=== PATIENT | female | born 1940 | race Caucasian/White ===

== ENCOUNTER → 2017-01-08 | Outpatient (CLI) | payer MEDICARE, OTHER ==
[~2017-01-08] MED LIST: CHOL20007; FOLI1TAB6 PO; FURO40TA4 PO; LOSA100T21 PO; MULTTAB PO; PROP60CA8 PO; SIMV-13 PO
[2017-01-08 09:59] LABS: Basophils # (auto) 0.1 uL; Basophils % (auto) 0.7 % (0.0-2.0); Eosinophils # (auto) 0.2 uL; Eosinophils % (auto) 3.3 % (0.0-7.0); Hematocrit 38.8 % (36.0-46.0); Hemoglobin 13.1 g/dL (12.2-16.2); Lymphocytes # (auto) 2.3 uL; Lymphocytes % (auto) 31.7 % (10.0-50.0); Mean Corpuscular Hemoglobin 31.5 pg (28.0-32.0); Mean Corpuscular Hgb Conc. 33.9 g/dL (32.0-36.0); Mean Corpuscular Volume 92.8 fL (80.0-100.0); Mean Platelet Volume 8.4 fL (7.4-10.4); Monocytes # (auto) 0.6 uL; Monocytes % (auto) 8.2 % (0.0-12.0); Neutrophils % (auto) 56.1 % (37.0-80.0); Platelet Count (auto) 271 10^3/uL (140-450); Red Cell Distribution Width 14.1 % (11.6-16.0); White Blood Cell 7.2 10^3/uL (4.4-10.8)
[2017-01-08 10:28] LABS: Albumin 3.6 g/dL (3.4-5.0); BUN/Creatinine Ratio 19.5; Calcium 9.2 mg/dL (8.5-10.1); Phosphorus 3.4 mg/dL (2.5-4.90); Potassium 4.7 mmol/L (3.5-5.1)
[2017-01-08 11:08] LABS: Urine Bilirubin Negative (Negative); Urine Blood Negative /uL (Negative); Urine Color Yellow (Yellow); Urine Glucose Normal (Normal); Urine Ketone Negative (Negative); Urine Nitrite Negative (Negative); Urine RBC <1 /hpf (0 - 4); Urine Squamous Epithelial Cell MOD /hpf (<5); Urine Urobilinogen Normal (Negative); Urine pH 5.5 (5.0-8.0)
== END | disposition home or self-care (01) ==
LOC: LAB 09:27
PROVIDERS: ATTEND Internal Medicine
DX: Z00.00 Encounter for general adult medical examination without abnormal findings (principal)
CPT/HCPCS: 36415; 80061; 80069; 81001; 82043; 83036; 85025

== ENCOUNTER → 2019-05-15 | Outpatient (CLI) | payer MEDICARE, OTHER ==
[~2019-05-15] MED LIST changes: +PROP60CA34 PO; -PROP60CA8 PO
[2019-05-15 12:27] LABS: Basophils # (auto) 0.1 uL; Basophils % (auto) 1.1 % (0.0-2.0); Eosinophils # (auto) 0.2 uL; Eosinophils % (auto) 2.9 % (0.0-7.0); Hematocrit 39.2 % (36.0-46.0); Hemoglobin 13.2 g/dL (12.2-16.2); Lymphocytes # (auto) 2.5 uL; Mean Corpuscular Hemoglobin 31.8 pg (28.0-32.0); Mean Corpuscular Hgb Conc. 33.7 g/dL (32.0-36.0); Mean Corpuscular Volume 94.4 fL (80.0-100.0); Monocytes # (auto) 0.5 uL; Monocytes % (auto) 7.1 % (0.0-12.0); Neutrophils # (auto) 3.8 uL; Neutrophils % (auto) 53.9 % (37.0-80.0); Platelet Count (auto) 258 10^3/uL (140-450); Red Blood Cells 4.16 10^6/uL (4.0-5.20); Red Cell Distribution Width 13.5 % (11.8-14.3)
[2019-05-15 13:01] LABS: Potassium 4.4 mmol/L (3.5-5.1)
[2019-05-15 13:10] LABS: Albumin 3.7 g/dL (3.4-5.0); BUN/Creatinine Ratio 18.2; Bilirubin, Total 0.4 mg/dL (0.2-1.0); Calcium 9.4 mg/dL (8.5-10.1); Total Protein 8.3 g/dL (6.4-8.2)
[2019-05-15 15:50] LABS: Urine Bacteria MANY /hpf (None Seen); Urine Blood Negative /uL (Negative); Urine Hyaline Cast MOD /lpf (0 - 2); Urine Mucus FEW (None Seen); Urine Specific Gravity 1.018 (1.001-1.035); Urine WBC 350 /hpf (0 - 5); Urine WBC Clumps PRESENT /hpf (None Seen)
== END | disposition home or self-care (01) ==
LOC: LAB 11:15
PROVIDERS: ATTEND Physician Assistant
DX: E11.22 Type 2 diabetes mellitus with diabetic chronic kidney disease (principal); I12.9 Hypertensive chronic kidney disease with stage 1 through stage 4 chronic kidney disease, or unspecified chronic kidney disease; N18.3 Chronic kidney disease, stage 3 (moderate); E78.1 Pure hyperglyceridemia; E87.6 Hypokalemia
CPT/HCPCS: 36415; 80053; 80061; 81001; 83036; 85025

== ENCOUNTER → 2021-03-30 | Outpatient (CLI) | payer MEDICARE, OTHER ==
[~2021-03-30] MED LIST changes: +MULT-733 PO; -MULTTAB PO
[2021-03-30 08:37] LABS: Basophils # (auto) 0.1 10 ^3/uL (0-0.2); Basophils % (auto) 1.1 % (0.0-2.0); Eosinophils # (auto) 0.2 10 ^3/uL (0-0.8); Eosinophils % (auto) 3.3 % (0.0-7.0); Hematocrit 31.8 % (36.0-46.0); Lymphocytes # (auto) 2.3 10 ^3/uL (0.4-5.4); Lymphocytes % (auto) 35.3 % (10.0-50.0); Mean Corpuscular Hgb Conc. 34.6 g/dL (32.0-36.0); Mean Corpuscular Volume 95.3 fL (80.0-100.0); Monocytes # (auto) 0.4 10 ^3/uL (0-1.3); Monocytes % (auto) 6.7 % (0.0-12.0); Neutrophils # (auto) 3.5 10 ^3/uL (1.6-8.6); Neutrophils % (auto) 53.6 % (37.0-80.0); Platelet Count (auto) 216 10^3/uL (140-450); Red Blood Cells 3.33 10^6/uL (4.0-5.20); Red Cell Distribution Width 14.3 % (11.8-14.3); White Blood Cell 6.5 10^3/uL (4.4-10.8)
[2021-03-30 09:12] LABS: Potassium 5.5 mmol/L (3.5-5.1)
[2021-03-30 09:29] LABS: Albumin 3.4 g/dL (3.4-5.0); Bilirubin, Total 0.4 mg/dL (0.2-1.0); Calcium 9.3 mg/dL (8.5-10.1); Total Protein 7.4 g/dL (6.4-8.2)
== END | disposition home or self-care (01) ==
LOC: LAB 07:40
PROVIDERS: ATTEND Physician Assistant
DX: I12.9 Hypertensive chronic kidney disease with stage 1 through stage 4 chronic kidney disease, or unspecified chronic kidney disease (principal); E11.22 Type 2 diabetes mellitus with diabetic chronic kidney disease; N18.30 Chronic kidney disease, stage 3 unspecified; E11.29 Type 2 diabetes mellitus with other diabetic kidney complication; Z00.00 Encounter for general adult medical examination without abnormal findings; E78.1 Pure hyperglyceridemia; E87.6 Hypokalemia
CPT/HCPCS: 36415; 80053; 80061; 82043; 82274; 83036; 85025; 85049

== ENCOUNTER → 2022-07-31 | Outpatient (CLI) | payer MEDICARE, OTHER ==
[2022-07-31 09:30] LABS: Albumin 3.3 g/dL (3.4-5.0); Calcium 8.8 mg/dL (8.5-10.1); Potassium 4.9 mmol/L (3.5-5.1)
[2022-07-31 09:32] LABS: Basophils # (auto) 0.1 10 ^3/uL (0-0.2); Basophils % (auto) 0.8 % (0.0-2.0); Eosinophils # (auto) 0.2 10 ^3/uL (0-0.8); Eosinophils % (auto) 3.2 % (0.0-7.0); Hematocrit 35.1 % (36.0-46.0); Hemoglobin 11.9 g/dL (12.2-16.2); Lymphocytes # (auto) 1.9 10 ^3/uL (0.4-5.4); Mean Corpuscular Hemoglobin 32.2 pg (28.0-32.0); Mean Corpuscular Hgb Conc. 33.8 g/dL (32.0-36.0); Mean Corpuscular Volume 95.2 fL (80.0-100.0); Monocytes # (auto) 0.5 10 ^3/uL (0-1.3); Monocytes % (auto) 6.9 % (0.0-12.0); Neutrophils # (auto) 4.3 10 ^3/uL (1.6-8.6); Neutrophils % (auto) 62.1 % (37.0-80.0); Red Blood Cells 3.68 10^6/uL (4.0-5.20); Red Cell Distribution Width 13.3 % (11.8-14.3)
[2022-07-31 09:34] LABS: BUN/Creatinine Ratio 11.3; Bilirubin, Total 0.4 mg/dL (0.2-1.0); Total Protein 7.2 g/dL (6.4-8.2)
== END | disposition home or self-care (01) ==
LOC: LAB 08:33
PROVIDERS: ATTEND Nurse Practitioner Family
DX: I12.9 Hypertensive chronic kidney disease with stage 1 through stage 4 chronic kidney disease, or unspecified chronic kidney disease (principal); N18.30 Chronic kidney disease, stage 3 unspecified; E78.1 Pure hyperglyceridemia; E11.65 Type 2 diabetes mellitus with hyperglycemia; Z00.00 Encounter for general adult medical examination without abnormal findings
CPT/HCPCS: 36415; 80053; 80061; 83036; 84439; 84443; 85025

== ENCOUNTER → 2023-12-10 | Outpatient (CLI) | payer MEDICARE, OTHER ==
[~2023-12-10] MED LIST changes: +FOLI-119 PO; -FOLI1TAB6 PO; -SIMV-13 PO; +SIMV40TA18 PO
[2023-12-10 15:34] LABS: Alanine Aminotransferase 14 U/L (7-40); Albumin 4.5 g/dL (3.2-4.8); Alkaline Phosphatase 77 U/L (46-116); Anion Gap 8 (5-15); Aspartate Aminotransferase 13 U/L (13-40); BUN/Creatinine Ratio 14.2 (10.0-20.0); Bilirubin, Total 0.4 mg/dL (0.2-1.0); Blood Urea Nitrogen 22 mg/dL (9-23); Calcium 9.5 mg/dL (8.5-10.1); Carbon Dioxide 26 mmol/L (20-30); Chloride 104 mmol/L (98-107); Glucose 104 mg/dL (74-106); Potassium 4.6 mmol/L (3.5-5.1); Sodium 138 mmol/L (136-145); Total Protein 7.6 g/dL (5.7-8.2)
== END | disposition home or self-care (01) ==
LOC: LAB 15:02
PROVIDERS: ATTEND Nurse Practitioner Family
DX: E11.22 Type 2 diabetes mellitus with diabetic chronic kidney disease (principal); N18.9 Chronic kidney disease, unspecified
CPT/HCPCS: 36415; 80053; 82043

== ENCOUNTER → 2024-07-24 | Outpatient (CLI) | payer MEDICARE, OTHER ==
[2024-07-24 09:20] LABS: Basophils # (auto) 0.1 10 ^3/uL (0-0.2); Eosinophils # (auto) 0.2 10 ^3/uL (0-0.8); Hematocrit 37.5 % (36.0-46.0); Hemoglobin 12.7 g/dL (12.2-16.2); Lymphocytes # (auto) 2.4 10 ^3/uL (0.4-5.4); Lymphocytes % (auto) 28.9 % (10.0-50.0); Mean Corpuscular Hemoglobin 32.7 pg (28.0-32.0); Mean Corpuscular Hgb Conc. 33.8 g/dL (32.0-36.0); Mean Corpuscular Volume 96.5 fL (80.0-100.0); Monocytes # (auto) 0.5 10 ^3/uL (0-1.3); Monocytes % (auto) 6.1 % (0.0-12.0); Neutrophils # (auto) 5.2 10 ^3/uL (1.6-8.6); Platelet Count (auto) 294 10^3/uL (140-450); Red Blood Cells 3.89 10^6/uL (4.0-5.20); Red Cell Distribution Width 14.1 % (11.8-14.3); White Blood Cell 8.4 10^3/uL (4.4-10.8)
[2024-07-24 09:51] LABS: Creatinine, Urine 104.53 mg/dL (30.0-125.0)
[2024-07-24 09:54] LABS: Alanine Aminotransferase 10 U/L (7-40); Albumin 4.5 g/dL (3.2-4.8); Alkaline Phosphatase 72 U/L (46-116); Anion Gap 8 (5-15); Aspartate Aminotransferase < 8 U/L (13-40); BUN/Creatinine Ratio 18.3 (10.0-20.0); Bilirubin, Total 0.3 mg/dL (0.2-1.0); Blood Urea Nitrogen 35 mg/dL (9-23); Calcium 10.2 mg/dL (8.7-10.4); Carbon Dioxide 21 mmol/L (20-31); Chloride 110 mmol/L (98-107); Cholesterol 130 mg/dL (< 200); Glucose 136 mg/dL (74-106); HDL Cholesterol 43 mg/dL (40-59); LDL Cholesterol 59 mg/dL (< 100); Potassium 5.2 mmol/L (3.5-5.1); Sodium 139 mmol/L (136-145); Triglycerides 237 mg/dL (< 150)
== END | disposition home or self-care (01) ==
LOC: LAB 08:48
PROVIDERS: ATTEND Nurse Practitioner Family
DX: E11.22 Type 2 diabetes mellitus with diabetic chronic kidney disease (principal); I70.0 Atherosclerosis of aorta; E03.9 Hypothyroidism, unspecified; I10 Essential (primary) hypertension
CPT/HCPCS: 36415; 80053; 80061; 82043; 82274; 82570; 83036; 84443; 85025

== ENCOUNTER → 2024-11-11 | Outpatient (CLI) | payer MEDICARE, OTHER ==
[2024-11-11 15:46] LABS: Chloride 104 mmol/L (98-107); Potassium 4.8 mmol/L (3.5-5.1); Sodium 138 mmol/L (136-145)
[2024-11-11 15:47] LABS: Anion Gap 8 (5-15); Carbon Dioxide 26 mmol/L (20-31)
[2024-11-11 15:48] LABS: Calcium 10.4 mg/dL (8.7-10.4)
[2024-11-11 15:52] LABS: Glucose 104 mg/dL (74-106)
[2024-11-11 15:53] LABS: BUN/Creatinine Ratio 17.4 (10.0-20.0); Blood Urea Nitrogen 29 mg/dL (9-23)
== END | disposition home or self-care (01) ==
LOC: LAB 14:33
PROVIDERS: ATTEND Nurse Practitioner Family
DX: E11.22 Type 2 diabetes mellitus with diabetic chronic kidney disease (principal); N18.30 Chronic kidney disease, stage 3 unspecified; D63.1 Anemia in chronic kidney disease; E11.21 Type 2 diabetes mellitus with diabetic nephropathy; N39.0 Urinary tract infection, site not specified; E87.5 Hyperkalemia; E21.3 Hyperparathyroidism, unspecified; E55.9 Vitamin D deficiency, unspecified; M10.9 Gout, unspecified; R80.9 Proteinuria, unspecified
CPT/HCPCS: 36415; 80048

== ENCOUNTER 2025-03-16 11:52 | Outpatient (CLI) | payer MEDICARE ==
[2025-03-16 12:11] LABS: Basophils # (auto) 0 10 ^3/uL (0-0.2); Basophils % (auto) 0.5 % (0.0-2.0); Eosinophils # (auto) 0.1 10 ^3/uL (0-0.8); Eosinophils % (auto) 2.1 % (0.0-7.0); Hematocrit 36.5 % (36.0-46.0); Hemoglobin 12.4 g/dL (12.2-16.2); Lymphocytes # (auto) 1.8 10 ^3/uL (0.4-5.4); Lymphocytes % (auto) 27.5 % (10.0-50.0); Mean Corpuscular Hemoglobin 31.9 pg (28.0-32.0); Monocytes # (auto) 0.5 10 ^3/uL (0-1.3); Monocytes % (auto) 7.8 % (0.0-12.0); Neutrophils # (auto) 4.2 10 ^3/uL (1.6-8.6); Neutrophils % (auto) 62.1 % (37.0-80.0); Platelet Count (auto) 275 10^3/uL (140-450); Red Blood Cells 3.89 10^6/uL (4.0-5.20); White Blood Cell 6.7 10^3/uL (4.4-10.8)
[2025-03-16 13:05] LABS: Urine Bacteria MANY /hpf (None Seen); Urine Blood Negative /uL (Negative); Urine Budding Yeast OCCASIONAL /hpf (None Seen); Urine Clarity Turbid (Clear); Urine Color Light-Yellow (Yellow); Urine Mucus FEW (None Seen); Urine Protein, UAD Negative (Negative); Urine Specific Gravity 1.013 (1.001-1.035); Urine Squamous Epithelial Cell MOD /hpf (<5); Urine Urobilinogen Normal (Negative); Urine WBC 166 /HPF (0-5); Urine WBC Clumps PRESENT /hpf (None Seen); Urine pH 5.5 (5.0-9.0)
[2025-03-16 13:11] LABS: Alanine Aminotransferase 10 U/L (7-40); Albumin 4.5 g/dL (3.2-4.8); Alkaline Phosphatase 69 U/L (46-116); Anion Gap 12 (5-15); Aspartate Aminotransferase 11 U/L (<34); BUN/Creatinine Ratio 15.6 (10.0-20.0); Calcium 10.3 mg/dL (8.7-10.4); Carbon Dioxide 22 mmol/L (20-31); Chloride 106 mmol/L (98-107); Potassium 4.7 mmol/L (3.5-5.1); Sodium 140 mmol/L (136-145); Total Protein 7.8 g/dL (5.7-8.2)
[2025-03-16 13:14] LABS: Bilirubin, Total 0.3 mg/dL (0.2-1.0); Blood Urea Nitrogen 29 mg/dL (9-23); Glucose 188 mg/dL (74-106)
[2025-03-16 13:26] LABS: Creatinine, Urine 56.14 mg/dL (30.0-125.0)
[2025-03-16 17:22] LABS: Protein, Urine 28.1 mg/dL (1-14)
[2025-03-16 17:24] LABS: Creatinine, Urine 55.66 mg/dL (30.0-125.0); Urine Protein/Creatinine Ratio 0.5
== END 2025-03-16 17:00 | disposition home or self-care (01) ==
LOC: LAB 11:52
PROVIDERS: ATTEND Internal Medicine
DX: E11.22 Type 2 diabetes mellitus with diabetic chronic kidney disease (principal); N18.30 Chronic kidney disease, stage 3 unspecified; N39.0 Urinary tract infection, site not specified; R80.9 Proteinuria, unspecified; E21.3 Hyperparathyroidism, unspecified; E55.9 Vitamin D deficiency, unspecified; D63.1 Anemia in chronic kidney disease; M10.9 Gout, unspecified
CPT/HCPCS: 36415; 80053; 81001; 82043; 82306; 82570; 83036; 83970; 84156; 85025

== ENCOUNTER 2025-03-24 12:33 | Outpatient (CLI) | payer MEDICARE | END 2025-03-24 17:00 | disposition home or self-care (01) | LOC: LAB 12:33 | PROVIDERS: ATTEND Internal Medicine | DX: N39.0 Urinary tract infection, site not specified (principal) | CPT/HCPCS: 87086 ==

== ENCOUNTER 2025-04-06 15:18 | Outpatient (CLI) | payer MEDICARE ==
[2025-04-06 15:30] LABS: Hematocrit 38.7 % (36.0-46.0); Hemoglobin 13.0 g/dL (12.2-16.2); Mean Corpuscular Hemoglobin 31.9 pg (28.0-32.0); Mean Corpuscular Volume 95.3 fL (80.0-100.0); Nucleated Red Blood Cells % 0.1 %
[2025-04-06 15:50] LABS: INR 0.98 (0.9-1.15); Partial Thromboplastin Time 25.4 SEC (24.5-34.5); Prothrombin Time 10.4 sec (9.3-11.8)
[2025-04-06 16:10] LABS: Albumin 4.6 g/dL (3.2-4.8); Alkaline Phosphatase 68 U/L (46-116); Anion Gap 12 (5-15); BUN/Creatinine Ratio 16.5 (10.0-20.0); Bilirubin, Total 0.3 mg/dL (0.2-1.0); Calcium 9.3 mg/dL (8.7-10.4); Carbon Dioxide 21 mmol/L (20-31); Chloride 105 mmol/L (98-107); Sodium 138 mmol/L (136-145); Total Protein 7.8 g/dL (5.7-8.2)
[2025-04-06 16:20] LABS: Alanine Aminotransferase < 9 U/L (7-40); Blood Urea Nitrogen 34 mg/dL (9-23); Glucose 110 mg/dL (74-106)
[2025-04-06 16:28] LABS: Potassium 5.6 mmol/L (3.5-5.1)
== END 2025-04-06 17:00 | disposition home or self-care (01) ==
LOC: LAB 15:18
PROVIDERS: ATTEND Registered Nurse
DX: C18.2 Malignant neoplasm of ascending colon (principal); E11.21 Type 2 diabetes mellitus with diabetic nephropathy; Z79.899 Other long term (current) drug therapy
CPT/HCPCS: 36415; 80053; 82378; 85025; 85610; 85730

== ENCOUNTER 2025-04-14 13:46 | Outpatient (CLI) | payer MEDICARE | END 2025-04-14 17:00 | disposition home or self-care (01) | LOC: Rad HDHVI 13:46 | PROVIDERS: ATTEND Internal Medicine Cardiovascular Disease | DX: Z01.810 Encounter for preprocedural cardiovascular examination (principal); I34.81 Nonrheumatic mitral (valve) annulus calcification | CPT/HCPCS: 93306 ==

== ENCOUNTER 2025-04-17 10:29 | Outpatient (CLI) | payer MEDICARE ==
[~2025-04-17] VITALS: Ht 162.6 cm; Wt 79.4 kg
[2025-04-17] MEDS ORDERED: ADENOSINE 90 MG/30 ML INJ IV ONE (11:44)
== END 2025-04-17 17:00 | disposition home or self-care (01) ==
LOC: Rad HDHVI 10:29
PROVIDERS: ATTEND Internal Medicine Cardiovascular Disease
DX: Z01.810 Encounter for preprocedural cardiovascular examination (principal); I49.1 Atrial premature depolarization; I49.3 Ventricular premature depolarization; I10 Essential (primary) hypertension; E11.9 Type 2 diabetes mellitus without complications; E78.00 Pure hypercholesterolemia, unspecified; Z13.6 Encounter for screening for cardiovascular disorders
CPT/HCPCS: 78452; 93017; A9500; J0153

== ENCOUNTER 2025-09-04 15:20 | Inpatient (IN) | payer MEDICARE ==
[~2025-09-04] VITALS: Ht 162.6 cm; Wt 84.0 kg
[2025-09-04 16:07] VITALS: PULSE 91; RESP 24; O2SAT 98
[2025-09-04 16:10] VITALS: PULSE 106; RESP 18; O2SAT 98
[2025-09-04] MEDS: SODIUM CHLORIDE 0.9% 1,000 ML IV ONE (16:14)
[2025-09-04] MEDS ORDERED: METF-370 PO (16:15)
--- NOTE | 2025-09-04 16:44 | ED.PDOC ---
History of Present Illness HPI Comments 14: christopher; generalized weakness HPI: Poor Historian. 85-year-old female brought in by ambulance from home for generalized weakness. Son was called in [place] and she has not been answering he called 911. They found the patient on the floor awake alert. Patient states that she has been having diarrhea for few months normal in color and as she was trying to get to the bathroom she had a diarrhea episode. She stooped down to try to clean the diarrhea and when she did she rolled to the side and was too weak to stand up again and stayed on the floor for approximately two days. Has not been eating or drinking much. Denies any pain anywhere in her body. Denies any loss of consciousness. Denies any head or neck injury. Past Medical History: Hypertension, hyperlipidemia, diabetes Past Surgical History: Mass removed from colon, cataracts, hysterectomy, REVIEW OF SYSTEMS: CONSTITUTIONAL: Denies acute: fever, diaphoresis, chills, HEAD: Denies acute: headache, photophobia Eyes: Denies acute: Double vision, vision loss, eye pain, eye discharge. EARS: Denies acute: tinnitus, hearing loss, ear discharge, ear pain, THROAT: Denies acute: sore throat, swelling, difficulty swallowing , pain with swallowing, change in voice. NECK: Denies acute: neck pain, neck swelling, stiff neck. HEART: Denies acute : chest pain, palpitations, LUNGS: Denies acute: SOB, wheezing, cough, hemoptysis ABDOMEN: Denies acute: abdominal pain, melena , hematemesis, hematochezia SKIN: Denies acute: rash, redness, lesions, itchiness. EXTREMITIES: Denies acute: calf pain, numbness, tingling, weakness, denies pain in extremity. Denies acute: Low back pain. Neuro: Denies acute: focal neurological deficit, motor or sensory focal neurological deficit, tremors, seizure like activity, confusion, dizziness, change in mental status, loss of bowel or bladder function, cauda equina like symptoms. : Denies acute: dysuria, hematuria, flank pain, increase in urinary frequency. PSYCH: Denies acute: hallucination, suicidal ideation, homicidal ideation. FEMALE: Denies acute: abnormal vaginal bleeding, foul odor, unusual discharge. PHYSICAL EXAM: General: ----mild----acute distress, awake and alert. Head: normocephalic, atraumatic. No raccoon's eyes, no gerard sign. Neck: supple, trachea is midline, no swelling. Throat: Normal phonation. Dry oral mucosa Eyes:, no erythema, no purulent discharge, no proptosis, no icterus. Heart: regular tachycardic, no significant murmur appreciated. Lungs: no apparent respiratory distress, Able to speak in full sentences. No wheezing, no rhonchi, no crackles. No stridors Clear to auscultation bilaterally. Abdomen: non tender to palpation, non distended, soft, no guarding, no rebound, + bowel sounds. Neuro: Awake, Alert, oriented to name, self, situation, follows commands GCS=15. Speech is normal. Skin: no petechia, no purpura, no cyanosis, non-pale, not jaundice. Lower extremities: --no - Pitting edema no deformity, no focal swelling, no calf TTP. Makes eye contact. moves all four extremities. Face: no apparent facial droop. No nystagmus. No nuchal rigidity, Kernig's sign, Brudzinski's sign, no meningeal signs. ED COURSE: DISCLAIMER: This medical document was created using an electronic medical record system with voice recognition software and computerized dictation system. Although this document has been carefully reviewed, there might still be some phonetic and typographical errors. Occasional wrong-word or "sound-alike" substitutions may have occurred due to the inherent limitations of voice recognition software. These areas are purely typographical due to imperfections of the software programs and do not reflect any compromise in the patient's medical care. Please read the chart carefully and recognize, using context, where these substitutions have occurred. Chief Complaint: Fall Injury Time Seen by MD: 15:46 Primary Care Provider: BRYANT Reviewed Notes: Allergies Allergies: Coded Allergies: NO KNOWN ALLERGIES (Unverified , 08/31/15) Home Meds Reported Medications Metformin Hydrochloride (Metformin Hcl) 850 Mg Tab, 1000 MG PO DAILY for 30 Days, MG 09/05/25 Metformin Hydrochloride (Metformin Hcl) 500 Mg Tab, 1 TAB PO BID, #180 TAB 3 Refills 09/04/25 Propranolol Hcl (Inderal La) 60 Mg Cap, 40 MG PO BID, #90 CAP 1 Refill 08/31/15 Simvastatin (Simvastatin) 40 Mg Tab, 1 TAB PO QPM, #30 TAB 5 Refills 08/31/15 Folic Acid (Folic Acid) 1 Mg Tab, 1 MG PO DAILY for 30 Days, MG 08/31/15 Information Source: Patient Mode of Arrival: EMS Past Medical History PAST MEDICAL HISTORY: Cancer, DM, HTN Surgical History: Appendectomy, Hysterectomy [employer] WORKER History: No Pertinent [employer]RE[employer] WORKER History Family History Family History: Unknown Social History Smoker: Non-Smoker Alcohol: Denies ETOH Use Drugs: Denies Drug Use Lives In: Home Was a procedure done? Was a procedure done?: No Differential Dx Considerations may include: Includes but not limited to thyroid disease, encephalopathy, electrolyte abnormality, sepsis, infection, intracranial pathology, drug adverse effects, arrhythmia, kidney insufficiency, ACS, CVA, malignancy, anemia X-Ray, Labs, Meds, VS Vital Signs Date Time Temp Pulse Resp B/P (MAP) Pulse Ox O2 Delivery O2 Flow Rate FiO2 09/04/25 19:30 98.1 87 18 143/53 (83) 95 98.1 09/04/25 19:30 Room Air* 0 21 09/04/25 19:00 82 26 143/59 (87) 100 09/04/25 17:00 92 28 120/46 (70) 97 09/04/25 16:07 91 24 98 Room Air* 0 21 09/04/25 16:02 97.6 106 18 154/107 98 97.6 09/04/25 15:44 98.2 108 22 184/79 (114) 90 98.2 Lab Test 09/04/25 19:55 09/04/25 18:32 09/04/25 17:09 09/04/25 17:00 Range/Units Troponin I High Sensitivity 19 18 16 </=34 ng/L Urine Color Yellow Yellow Urine Clarity Turbid H Clear Urine pH 5.5 5.0-9.0 Urine Specific [place] 1.017 1.001-1.035 Urine Protein 1+ H Negative Urine Ketones Trace Negative Urine Blood Negative Negative /uL Urine Nitrite Negative Negative Urine Bilirubin Negative Negative Urine Urobilinogen Normal Negative mg/dL Urine Leukocyte Esterase Negative Negative /uL Urine RBC <1 0 - 4 /hpf Urine Microscopic WBC 2 0-5 /HPF Urine Squamous Epithelial Cells Mod <5 /hpf Urine Bacteria Few H None Seen /hpf Urine Mucus Few None Seen Urine Glucose Normal Normal mg/dL White Blood Count 9.4 4.4-10.8 10^3/uL Red Blood Count 3.71 L 4.0-5.20 10^6/uL Hemoglobin 11.6 L 12.2-16.2 g/dL Hematocrit 35.2 L 36.0-46.0 % Mean Corpuscular Volume 94.8 80.0-100.0 fL Mean Corpuscular Hemoglobin 31.2 28.0-32.0 pg Mean Corpuscular Hemoglobin Concent 32.9 32.0-36.0 g/dL Red Cell Distribution Width 14.3 11.8-14.3 % Platelet Count 242 140-450 10^3/uL Mean Platelet Volume 7.9 6.9-10.8 fL Neutrophils (%) (Auto) 68.9 37.0-80.0 % Lymphocytes (%) (Auto) 21.2 10.0-50.0 % Monocytes (%) (Auto) 9.1 0.0-12.0 % Eosinophils (%) (Auto) 0.3 0.0-7.0 % Basophils (%) (Auto) 0.5 0.0-2.0 % Neutrophils # (Auto) 6.5 1.6-8.6 10 ^3/uL Lymphocytes # (Auto) 2.0 0.4-5.4 10 ^3/uL Monocytes # (Auto) 0.8 0-1.3 10 ^3/uL Eosinophils # (Auto) 0 0-0.8 10 ^3/uL Basophils # (Auto) 0 0-0.2 10 ^3/uL Nucleated Red Blood Cells 0.1 % Sodium Level 146 H 136-145 mmol/L Potassium Level 4.5 3.5-5.1 mmol/L Chloride Level 109 H 98-107 mmol/L Carbon Dioxide Level 21 20-31 mmol/L Anion Gap 16 H 5-15 Blood Urea Nitrogen 19 9-23 mg/dL Creatinine 1.52 H 0.550-1.02 mg/dL Glomerular Filtration Rate Calc 33 >90 mL/min BUN/Creatinine Ratio 12.5 10.0-20.0 Serum Glucose 101 74-106 mg/dL Lactic Acid Level 1.4 0.4-2.0 mmol/L Calcium Level 9.3 8.7-10.4 mg/dL Total Bilirubin 0.5 0.2-1.0 mg/dL Aspartate Amino Transferase (AST) 24 13-40 U/L Alanine Aminotransferase (ALT) 18 7-40 U/L Alkaline Phosphatase 81 46-116 U/L Creatine Kinase 219 H 34-145 U/L Total Protein 6.7 5.7-8.2 g/dL Albumin 3.6 3.2-4.8 g/dL Lipase 28 12-53 U/L Current Medications Medications (Trade) Dose Ordered Sig/Josué Route Start Time Stop Time Status Last Admin Sodium Chloride 1,000 ml @ 1,000 mls/hr Q1H ONCE IV 09/04/25 16:00 09/04/25 16:59 DC 09/04/25 16:14 Clonidine HCl (Catapres Tablet) 0.1 mg Q4HP PRN PO 09/04/25 19:15 09/05/25 00:52 X-Ray, Labs, Meds, VS Comment [place] [address] Ph: [phone] DIAGNOSTIC IMAGING Diagnostic Imaging Report : [id number] Signed PATIENT: MANJULA CHRISTOPHER ACCT: [id number] UNIT: [id number] : 1940 LOC: ER ROOM / BED: / AGE / SEX: 85 / F ADM STATUS: REG ER SERVICE 1546 ORDERING PHYSICIAN: ISAAC DHALIWAL DO PROCEDURE(s): CXRP - CHEST PORTABLE REASON: GEN WEAK ORDER NUMBER(s): [id number], ACCESSION NUMBER(s): [id number] CHEST RADIOGRAPH Indication: GEN ALCANTAR Technique: Single frontal view of the chest was obtained COMPARISON: None FINDINGS: Lines and Tubes: None Lungs: Clear Pleura: No effusion. No pneumothorax. Cardiomediastinal contours: Unremarkable Bones: Unremarkable IMPRESSION: No acute disease. ATED BY: ANURADHA JAMESON MD DICTATED DATE/TIME: 09/04/251814 SIGNED BY: ANURADHA JAMESON MD SIGNED DATE/TIME: 09/04/251814 CC: [facility] [id number] [place] [address] Ph: [phone] DIAGNOSTIC IMAGING Diagnostic Imaging Report : [id number] Signed PATIENT: MANJULA CHRISTOPHER ACCT: [id number] UNIT: [id number] : 1940 LOC: ER ROOM / BED: / AGE / SEX: 85 / F ADM STATUS: REG ER SERVICE 1546 ORDERING PHYSICIAN: ISAAC DHALIWAL DO PROCEDURE(s): ABPL - CT AB PEL WO CON-NO ORAL OR IV REASON: n/v/d ORDER NUMBER(s): [id number], ACCESSION NUMBER(s): [id number] Exam: CT CT AB PEL WO CON-NO ORAL OR IV History: n/v/d Comparison Study: None Technique: Multidetector spiral CT of the abdomen was performed from lung bases to pubic symphysis. Imaging was performed without IV contrast. Axial, coronal and sagittal multiplanar reformats were obtained from the axial data set by the technologist. Radiation Dose : 1. Abdomen/Pelvis: CTDIvol 14.8 mGy, DLP 799.51 mGy*cm. Findings: Evaluation of solid organs is limited due to lack of intravenous contrast use. Lower chest: Small hiatal hernia. Abdomen/pelvis: Liver is unremarkable. Cholelithiasis. No cholecystitis. No biliary ductal dilatation. There is a low-density lesion in the pancreatic tail measuring 3.3 x 2.5 cm with peripheral calcification. The spleen and adrenal glands are unremarkable. Kidneys are mildly atrophic but otherwise unremarkable. Scattered atherosclerotic plaque throughout the abdominal aorta which is otherwise normal in size. Extensive sigmoid diverticulosis. No diverticulitis. No acute bowel abnormality. Prior right hemicolectomy. No pneumoperitoneum, ascites, or abscess The urinary bladder is unremarkable. Hysterectomy. No adnexal masses. Osteopenia. No acute or suspicious osseous lesions. IMPRESSION: Cholelithiasis. Low-density lesion in the pancreatic tail with peripheral calcification. This is indeterminate and may represent a pseudocyst or cystic neoplasm. Recommend further evaluation with MRI of the abdomen with and without contrast. Extensive sigmoid diverticulosis. No diverticulitis Prior right hemicolectomy No acute bowel abnormality Radiation optimization: All CT scans at this facility use at least one of these dose optimization techniques: automated exposure control mA and/or kV adjustment per patient size (includes targeted exams where dose is matched to clinical indication) or iterative reconstruction. ATED BY: ANURADHA JAMESON MD DICTATED DATE/TIME: 09/04/251822 SIGNED BY: ANURADHA JAMESON MD SIGNED DATE/TIME: 09/04/251822 CC: Time of 1ST Reevaluation: 04:02 Reevaluation 1ST: Improved Patient Education/Counseling: Diagnosis, Treatment Family Education/Counseling: No Family Present Comments MDM: patient presented with the above HPI.--generalized weakness----workup was initiated. patient was found with the above mentioned diagnosis. the following medications were ordered: please refer to order lists of meds and tests obtained by myself Dr. Dhaliwal. Patient ED course and VS have been stabilized. Patient has been reassessed in the ED and remained in a stable condition. Patient/family voices understanding and is agreeable with plan. Patient has been observed in the ED adequate length of time to insure improvement/stability. Escalation of care considered: Consideration of escalation to observation or admission No reported head or neck injury or loss of consciousness. Patient was ADMITTED to the medicine team for further evaluation and treatment of their presentation. All the reports of any imaging studies that were ordered by myself were reviewed by myself. SEPSIS Sepsis Screen Date sepsis recognized/suspect: Sep 04, 2025 Time Sepsis recognized/suspect: 7 Recent Procedure: No On Antibiotic Therapy: No Respiratory Rate >20: No Heart Rate >90: Yes Temp<36 C (96.8 F) or >38.3 C: No SBP <90 or MAP <65 mmHG: No New Acute Mental Status Change: No Is the patient on CPAP, BIPAP,: No Physician Orders Stool Wbc (09/04/25 15:46) Ova & Parasite Exam (09/04/25 15:46) Stool Bacterial Culture (09/04/25 15:46) Clostridium Difficile Toxin (09/04/25 15:46) Ct Ab Pel Wo Con-No Oral Or Iv (09/04/25 15:46) [employer] Director (09/04/25 ) Electrocardigram (09/04/25 15:46) Chest Portable (09/04/25 15:46) Consistent Carb(Ccho)Diabetes (09/05/25 Breakfast) Glucose Blood (Accu-Chek Comfort Curve T (09/04/25 22:00) Insulin R (Human) (Insulin R) (09/04/25 22:00) Dextrose 50% Syringe (09/04/25 19:15) Allergies (09/04/25 19:05) Code Status (09/04/25 19:05) Sodium Chloride Lock (Saline Lock Ns) (09/04/25 22:00) Oxygen Per Hour (09/04/25 19:05) Hydrocodone-Acet 5/325mg Tab ([place] 5/32 (09/04/25 19:15) Ondansetron Hcl (Zofran) (09/04/25 19:15) Docusate Sodium Capsule (Colace Capsule) (09/04/25 19:15) Fall Risk Precautions In Place QSHIFT (09/04/25 19:05) Complete Blood Count (09/05/25 04:00) Comprehensive Metabolic Panel (09/05/25 04:00) Condition: Serious (09/04/25 19:05) Maintain Bed Rest (09/04/25 19:05) Sequential Compression Device (09/04/25 ) Atorvastatin (Lipitor) (09/04/25 22:00) Folic Acid Tablet (09/05/25 10:00) Metoprolol Tartrate Tablet (Lopressor Ta (09/04/25 22:00) Clonidine Hcl Tablet (Catapres Tablet) (09/04/25 19:15) Acetaminophen Tab Or Cap (Tylenol Tablet (09/04/25 19:15) Vital Signs Date Time Temp Pulse Resp B/P (MAP) Pulse Ox O2 Delivery O2 Flow Rate FiO2 09/04/25 19:30 98.1 87 18 143/53 (83) 95 98.1 09/04/25 19:30 Room Air* 0 21 09/04/25 19:00 82 26 143/59 (87) 100 09/04/25 17:00 92 28 120/46 (70) 97 09/04/25 16:07 91 24 98 Room Air* 0 21 09/04/25 16:02 97.6 106 18 154/107 98 97.6 09/04/25 15:44 98.2 108 22 184/79 (114 90 98.2 Laboratory Tests Test 09/04/25 17:00 Lactic Acid Level 1.4 mmol/L (0.4-2.0) White Blood Count 9.4 10^3/uL (4.4-10.8) Medications Medications Dose Ordered Sig/Josué Route Start Time Stop Time Status Last Admin Dose Admin Clonidine HCl 0.1 mg Q4HP PRN PO 09/04/25 19:15 09/05/25 00:52 Sodium Chloride 1,000 ml @ 1,000 mls/hr Q1H ONCE IV 09/04/25 16:00 09/04/25 16:59 DC 09/04/25 16:14 Departure 1 Departure Time of Disposition: 17:55 Impression: Primary Impression: Generalized weakness Additional Impressions: Diarrhea Dehydration Abnormal finding on CT scan Disposition: ADMITTED INPATIENT Admit to: Tele Condition: Guarded Discharged With: Self Critical Care Note Critical Care Time?: No I personally scribed for ISAAC DHALIWAL DO ([email or web address]) on 09/04/25 at 21:15. Electronically submitted by Lito Martinez ([email or web address]). ISAAC DHALIWAL DO Sep 04, 2025 16:44
[2025-09-04 17:28] LABS: Hematocrit 35.2 % (36.0-46.0); Hemoglobin 11.6 g/dL (12.2-16.2); Mean Corpuscular Hemoglobin 31.2 pg (28.0-32.0); Mean Corpuscular Volume 94.8 fL (80.0-100.0); Nucleated Red Blood Cells % 0.1 %
[2025-09-04 17:30] LABS: Urine Protein, UAD 1+ (Negative)
[2025-09-04 17:47] LABS: Alanine Aminotransferase 18 U/L (7-40); Albumin 3.6 g/dL (3.2-4.8); Alkaline Phosphatase 81 U/L (46-116); Anion Gap 16 (5-15); BUN/Creatinine Ratio 12.5 (10.0-20.0); Blood Urea Nitrogen 19 mg/dL (9-23); Calcium 9.3 mg/dL (8.7-10.4); Carbon Dioxide 21 mmol/L (20-31); Glucose 101 mg/dL (74-106); Potassium 4.5 mmol/L (3.5-5.1); Total Protein 6.7 g/dL (5.7-8.2)
[2025-09-04 17:48] LABS: Bilirubin, Total 0.5 mg/dL (0.2-1.0); Chloride 109 mmol/L (98-107); Creatine Kinase IFCC 219 U/L (34-145); Sodium 146 mmol/L (136-145)
[2025-09-04 18:04] LABS: Lipase 28 U/L (12-53)
--- NOTE | 2025-09-04 18:17 | DVH ---
CHEST RADIOGRAPH Indication: GEN WEAK Technique: Single frontal view of the chest was obtained COMPARISON: None FINDINGS: Lines and Tubes: None Lungs: Clear Pleura: No effusion. No pneumothorax. Cardiomediastinal contours: Unremarkable Bones: Unremarkable IMPRESSION: No acute disease.
--- NOTE | 2025-09-04 18:26 | DVH ---
Exam: CT CT AB PEL WO CON-NO ORAL OR IV History: n/v/d Comparison Study: None Technique: Multidetector spiral CT of the abdomen was performed from lung bases to pubic symphysis. Imaging was performed without IV contrast. Axial, coronal and sagittal multiplanar reformats were obtained from the axial data set by the technologist. Radiation Dose : 1. Abdomen/Pelvis: CTDIvol 14.8 mGy, DLP 799.51 mGy*cm. Findings: Evaluation of solid organs is limited due to lack of intravenous contrast use. Lower chest: Small hiatal hernia. Abdomen/pelvis: Liver is unremarkable. Cholelithiasis. No cholecystitis. No biliary ductal dilatation. There is a low-density lesion in the pancreatic tail measuring 3.3 x 2.5 cm with peripheral calcification. The spleen and adrenal glands are unremarkable. Kidneys are mildly atrophic but otherwise unremarkable. Scattered atherosclerotic plaque throughout the abdominal aorta which is otherwise normal in size. Extensive sigmoid diverticulosis. No diverticulitis. No acute bowel abnormality. Prior right hemicolectomy. No pneumoperitoneum, ascites, or abscess The urinary bladder is unremarkable. Hysterectomy. No adnexal masses. Osteopenia. No acute or suspicious osseous lesions. IMPRESSION: Cholelithiasis. Low-density lesion in the pancreatic tail with peripheral calcification. This is indeterminate and may represent a pseudocyst or cystic neoplasm. Recommend further evaluation with MRI of the abdomen with and without contrast. Extensive sigmoid diverticulosis. No diverticulitis Prior right hemicolectomy No acute bowel abnormality Radiation optimization: All CT scans at this facility use at least one of these dose optimization techniques: automated exposure control mA and/or kV adjustment per patient size (includes targeted exams where dose is matched to clinical indication) or iterative reconstruction.
[2025-09-04] MEDS ORDERED: ONDANSETRON HCL 4 MG/2 ML VIAL IV PRN (19:15)
[2025-09-04] MEDS ORDERED: DEXTROSE (50%) 50ML SYRG IV PRN (19:15)
[2025-09-04] MEDS ORDERED: DOCUSATE SOD 100 MG CAP PO PRN (19:15)
--- NOTE | 2025-09-04 20:42 | DVHHP2 ---
History of Present Illness Reason for Visit: Generalized weakness History of Present Illness The patient is a 85-year-old female with past medical history of diabetes mellitus, hyperlipidemia, anemia, and hypertension who presented to [facility] ED for evaluation of mechanical fall injury and generalized weakness. As reported, patient patient had a mechanical fall at home when she was trying to go to the bathroom with sustained knee pain, lower leg pain, and abdominal pain. Patient is a poor historian, information obtained from the chart and RN. Patient was seen and evaluated in the ED, laboratory data shows WBC 9.4, hemoglobin 11.6, hematocrit 35.2, platelets 242, sodium 146, potassium 4.5, BUN 19, creatinine 1.52, GFR 33, glucose 101, calcium 9.3, lipase 28, CK 219, troponin 16, lactic acid 1.4, blood pressure 154/107, heart rate 92, temperature 97.6 F, O2 saturation 98% on room air. X-ray of the lower extremity reports pending. Abdomen/pelvis CT revealing cholelithiasis, low-density lesion in the pancreatic tail with peripheral calcification, prior right hemicolectomy; no acute bowel abnormality. Chest x-ray show no acute disease. Please see medication orders section in the computer. On my assessment, patient denied chest pain, no headache, dizziness, diaphoresis, shortness of breaths, no diarrhea, nausea, vomiting, fever, no chills. Patient was admitted for further evaluation and medical management. Past Medical History DM, Hypertension, Hyperlipidemia, Anemia. Past Surgical History Right hemicolectomy Family History Reviewed, noncontributory to the management of this case. Past Social History The patient lives at home, denies smoking, alcohol or illicit drugs abuse. Review of Systems Constitutional: Yes: Weakness; No: Fever, Chills, Sweats, Malaise, Other Eyes: No: Pain, Vision change, Conjunctivae inflammation, Eyelid inflammation, Other, Redness ENT: No: Ear pain, Ear discharge, Nose pain, Nose discharge, Nose congestion, Mouth pain, Mouth swelling, Throat pain, Throat swelling, Other Respiratory: No: Cough, Dry, Shortness of breath, SOB with excertion, Wheezing, Hemoptysis, Pleuritic Pain, Sputum, Wheezing, Other Cardiovascular: No: Chest Pain, Palpitations, Orthopnea, Paroxysmal Noc. Dyspnea, Edema, Lt Headedness, Other Gastrointestinal: Abdominal Pain; No: Nausea, Vomiting, Diarrhea, Constipation, Melena, Hematochezia, Other Genitourinary: No Dysuria, No Frequency, No Incontinence, No Hematuria, No Retention, No Other Musculoskeletal: other (Knee pain), leg pain; No: neck pain, shoulder pain, arm pain, back pain, hand pain, foot pain Skin: No: Rash, Lesions, Jaundice, Bruising, Other Neurological: No: Weakness, Numbness, Incoordination, Change in speech, Confusion, Seizures, Other Allergies: Coded Allergies: NO KNOWN ALLERGIES (Unverified , 08/31/15) Medications Current Medications Medications Dose Ordered Sig/Josué Route Start Time Stop Time Status Last Admin Dose Admin Diagnostic Test (Pha) 1 strip ACHS 09/04/25 22:00 Insulin Human Regular ACHS SC 09/04/25 22:00 Dextrose 50 ml UD PRN IV 09/04/25 19:15 Sodium Chloride 10 ml Q8HR IV 09/04/25 22:00 Acetaminophen/ Hydrocodone Bitart 1 tab Q4HP PRN PO 09/04/25 19:15 Ondansetron HCl 4 mg Q4HP PRN IV 09/04/25 19:15 Docusate Sodium 100 mg BIDPRN PRN PO 09/04/25 19:15 Acetaminophen 500 mg Q6HP PRN PO 09/04/25 19:15 Atorvastatin Calcium 10 mg HS PO 09/04/25 22:00 Folic Acid 1 mg DAILY PO 09/05/25 10:00 Metoprolol Tartrate 25 mg BID PO 09/04/25 22:00 Clonidine HCl 0.1 mg Q4HP PRN PO 09/04/25 19:15 Exam Vital Signs Vital Signs Date Time Temp Pulse Resp B/P (MAP) Pulse Ox O2 Delivery O2 Flow Rate FiO2 09/04/25 19:30 98.1 87 18 143/53 (83) 95 98.1 09/04/25 19:30 Room Air* 0 21 General Appearance: Alert, Cooperative, No acute distress, Other (Oriented x2) HEENT: Atraumatic, PERRLA, EOMI, Mucous membr. moist/pink Respiratory: Normal air movement Cardiovascular: Regular rate, Normal S1, Normal S2, No murmurs Abdominal: Normal bowel sounds, Soft, No tenderness, No hepatospenomegaly, No masses Extremities: No clubbing, No cyanosis, No edema, Normal pulses, Other (Tenderness bilateral knee) Skin: No rashes, No significant lesion Neuro: Normal speech, Normal tone, Sensation intact, Cranial nerves 3-12 NL, Reflexes 2+, Other (Generalized weakness) Psych/Mental Status: Mental status NL, Mood NL Labs/Xrays Labs Test 09/04/25 19:55 09/04/25 17:09 09/04/25 17:00 Range/Units Troponin I High Sensitivity 19 </=34 ng/L Urine Color Yellow Yellow Urine Clarity Turbid H Clear Urine pH 5.5 5.0-9.0 Urine Specific [place] 1.017 1.001-1.035 Urine Protein 1+ H Negative Urine Ketones Trace Negative Urine Blood Negative Negative /uL Urine Nitrite Negative Negative Urine Bilirubin Negative Negative Urine Urobilinogen Normal Negative mg/dL Urine Leukocyte Esterase Negative Negative /uL Urine RBC <1 0 - 4 /hpf Urine Microscopic WBC 2 0-5 /HPF Urine Squamous Epithelial Cells Mod <5 /hpf Urine Bacteria Few H None Seen /hpf Urine Mucus Few None Seen Urine Glucose Normal Normal mg/dL White Blood Count 9.4 4.4-10.8 10^3/uL Red Blood Count 3.71 L 4.0-5.20 10^6/uL Hemoglobin 11.6 L 12.2-16.2 g/dL Hematocrit 35.2 L 36.0-46.0 % Mean Corpuscular Volume 94.8 80.0-100.0 fL Mean Corpuscular Hemoglobin 31.2 28.0-32.0 pg Mean Corpuscular Hemoglobin Concent 32.9 32.0-36.0 g/dL Red Cell Distribution Width 14.3 11.8-14.3 % Platelet Count 242 140-450 10^3/uL Mean Platelet Volume 7.9 6.9-10.8 fL Neutrophils (%) (Auto) 68.9 37.0-80.0 % Lymphocytes (%) (Auto) 21.2 10.0-50.0 % Monocytes (%) (Auto) 9.1 0.0-12.0 % Eosinophils (%) (Auto) 0.3 0.0-7.0 % Basophils (%) (Auto) 0.5 0.0-2.0 % Neutrophils # (Auto) 6.5 1.6-8.6 10 ^3/uL Lymphocytes # (Auto) 2.0 0.4-5.4 10 ^3/uL Monocytes # (Auto) 0.8 0-1.3 10 ^3/uL Eosinophils # (Auto) 0 0-0.8 10 ^3/uL Basophils # (Auto) 0 0-0.2 10 ^3/uL Nucleated Red Blood Cells 0.1 % Sodium Level 146 H 136-145 mmol/L Potassium Level 4.5 3.5-5.1 mmol/L Chloride Level 109 H 98-107 mmol/L Carbon Dioxide Level 21 20-31 mmol/L Anion Gap 16 H 5-15 Blood Urea Nitrogen 19 9-23 mg/dL Creatinine 1.52 H 0.550-1.02 mg/dL Glomerular Filtration Rate Calc 33 >90 mL/min BUN/Creatinine Ratio 12.5 10.0-20.0 Serum Glucose 101 74-106 mg/dL Lactic Acid Level 1.4 0.4-2.0 mmol/L Calcium Level 9.3 8.7-10.4 mg/dL Total Bilirubin 0.5 0.2-1.0 mg/dL Aspartate Amino Transferase (AST) 24 13-40 U/L Alanine Aminotransferase (ALT) 18 7-40 U/L Alkaline Phosphatase 81 46-116 U/L Creatine Kinase 219 H 34-145 U/L Total Protein 6.7 5.7-8.2 g/dL Albumin 3.6 3.2-4.8 g/dL Lipase 28 12-53 U/L PATIENT: MANJULA CHRISTOPHER ACCT: [id number] UNIT: [id number] : 1940 LOC: ER ROOM / BED: / AGE / SEX: 85 / F ADM STATUS: REG ER SERVICE 1546 ORDERING PHYSICIAN: ISAAC DHALIWAL DO PROCEDURE(s): ABPL - CT AB PEL WO CON-NO ORAL OR IV REASON: n/v/d ORDER NUMBER(s): [id number], ACCESSION NUMBER(s): [id number] Exam: CT CT AB PEL WO CON-NO ORAL OR IV History: n/v/d Comparison Study: None Technique: Multidetector spiral CT of the abdomen was performed from lung bases to pubic symphysis. Imaging was performed without IV contrast. Axial, coronal and sagittal multiplanar reformats were obtained from the axial data set by the technologist. Radiation Dose: 1. Abdomen/Pelvis: CTDIvol 14.8 mGy, DLP 799.51 mGy*cm. Findings: Evaluation of solid organs is limited due to lack of intravenous contrast use. Lower chest: Small hiatal hernia. Abdomen/pelvis: Liver is unremarkable. Cholelithiasis. No cholecystitis. No biliary ductal dilatation. There is a low-density lesion in the pancreatic tail measuring 3.3 x 2.5 cm with peripheral calcification. The spleen and adrenal glands are unremarkable. Kidneys are mildly atrophic but otherwise unremarkable. Scattered atherosclerotic plaque throughout the abdominal aorta which is otherwise normal in size. Extensive sigmoid diverticulosis. No diverticulitis. No acute bowel abnormality. Prior right hemicolectomy. No pneumoperitoneum, ascites, or abscess The urinary bladder is unremarkable. Hysterectomy. No adnexal masses. Osteopenia. No acute or suspicious osseous lesions. IMPRESSION: Cholelithiasis. Low-density lesion in the pancreatic tail with peripheral calcification. This is indeterminate and may represent a pseudocyst or cystic neoplasm. Recommend further evaluation with MRI of the abdomen with and without contrast. Extensive sigmoid diverticulosis. No diverticulitis Prior right hemicolectomy No acute bowel abnormality ORDERING PHYSICIAN: ISAAC DHALIWAL DO PROCEDURE(s): CXRP - CHEST PORTABLE REASON: TabbedOut ORDER NUMBER(s): [id number], ACCESSION NUMBER(s): [id number] CHEST RADIOGRAPH Indication: TabbedOut Technique: Single frontal view of the chest was obtained COMPARISON: None FINDINGS: Lines and Tubes: None Lungs: Clear Pleura: No effusion. No pneumothorax. Cardiomediastinal contours: Unremarkable Bones: Unremarkable IMPRESSION: No acute disease. SEPSIS Sepsis Screen Date sepsis recognized/suspect: Sep 04, 2025 Time Sepsis recognized/suspect: 1929 Recent Procedure: No On Antibiotic Therapy: No Respiratory Rate >20: No Heart Rate >90: No Temp<36 C (96.8 F) or >38.3 C: No SBP <90 or MAP <65 mmHG: No New Acute Mental Status Change: No Is the patient on CPAP, BIPAP,: No Physician Orders Stool Wbc (09/04/25 15:46) Ova & Parasite Exam (09/04/25 15:46) Stool Bacterial Culture (09/04/25 15:46) Clostridium Difficile Toxin (09/04/25 15:46) Ct Ab Pel Wo Con-No Oral Or Iv (09/04/25 15:46) Health Researcher (09/04/25 ) Electrocardigram (09/04/25 15:46) Chest Portable (09/04/25 15:46) Consistent Carb(Ccho)Diabetes (09/05/25 Breakfast) Glucose Blood (Accu-Chek Comfort Curve T (09/04/25 22:00) Insulin R (Human) (Insulin R) (09/04/25 22:00) Dextrose 50% Syringe (09/04/25 19:15) Allergies (09/04/25 19:05) Code Status (09/04/25 19:05) Sodium Chloride Lock (Saline Lock Ns) (09/04/25 22:00) Oxygen Per Hour (09/04/25 19:05) Hydrocodone-Acet 5/325mg Tab ([place] (09/04/25 19:15) Ondansetron Hcl (Zofran) (09/04/25 19:15) Docusate Sodium Capsule (Colace Capsule) (09/04/25 19:15) Fall Risk Precautions In Place QSHIFT (09/04/25 19:05) Complete Blood Count (09/05/25 04:00) Comprehensive Metabolic Panel (09/05/25 04:00) Condition: Serious (09/04/25 19:05) Maintain Bed Rest (09/04/25 19:05) Sequential Compression Device (09/04/25 ) Atorvastatin (Lipitor) (09/04/25 22:00) Folic Acid Tablet (09/05/25 10:00) Metoprolol Tartrate Tablet (Lopressor Ta (09/04/25 22:00) Clonidine Hcl Tablet (Catapres Tablet) (09/04/25 19:15) Acetaminophen Tab Or Cap (Tylenol Tablet (09/04/25 19:15) Vital Signs Date Time Temp Pulse Resp B/P (MAP) Pulse Ox O2 Delivery O2 Flow Rate FiO2 09/04/25 19:30 98.1 87 18 143/53 (83) 95 98.1 09/04/25 19:30 Room Air* 0 21 09/04/25 19:00 82 26 143/59 (87) 100 09/04/25 17:00 92 28 120/46 (70) 97 09/04/25 16:07 91 24 98 Room Air* 0 21 09/04/25 16:02 97.6 106 18 154/107 98 97.6 09/04/25 15:44 98.2 108 22 184/79 (114) 90 98.2 Laboratory Tests Test 09/04/25 17:00 Lactic Acid Level 1.4 mmol/L (0.4-2.0) White Blood Count 9.4 10^3/uL (4.4-10.8) Medications Medications Dose Ordered Sig/Josué Route Start Time Stop Time Status Last Admin Dose Admin Sodium Chloride 1,000 ml @ 1,000 mls/hr Q1H ONCE IV 09/04/25 16:00 09/04/25 16:59 DC 09/04/25 16:14 1,000 MLS/HR Assessment/Plan Assessment/Plan Generalized weakness Dehydration Bilateral knee pain Acute abdominal pain Acute on chronic kidney disease Plan 1. Admit to telemetry unit 2. Breathing treatment 3. Pain control management 4. Management of fluids and electrolytes 5. Consultation for hospitalist 6. Diagnostic tests abdomen/pelvis CT 7. DVT prophylaxis on SCDs 8. Repeat labs CBC, CMP in a.m. 9. Continue with current medical management 10. Treatment plan discussed with patient and RN. Patient verbalized understanding. Plan discussed with: Patient, Other (RN) My Orders Orders - TORRES HODGES DNP Procedure Category Date Status Time Consistent DIET 09/05/25 Transmitted Carb(Ccho)Diabetes Breakfast Glucose Blood PHA 09/04/25 In Process (Accu-Chek Comfort 22:00 Insulin R (Human) PHA 09/04/25 In Process (Insulin R) 22:00 Dextrose 50% Syringe PHA 09/04/25 In Process 19:15 Allergies YOLETTE 09/04/25 In Process 19:05 Code Status CODE 09/04/25 Transmitted 19:05 Sodium Chloride Lock PHA 09/04/25 In Process (Saline Lock Ns) 22:00 Oxygen Per Hour RT 09/04/25 Transmitted 19:05 Hydrocodone-Acet PHA 09/04/25 In Process 5/325mg Tab ([place] 19:15 Ondansetron Hcl PHA 09/04/25 In Process (Zofran) 19:15 Docusate Sodium PHA 09/04/25 In Process Capsule (Colace 19:15 Fall Risk Precautions YOLETTE 09/04/[address] 19:05 Complete Blood Count LAB 09/05/25 Verified 04:00 Comprehensive LAB 09/05/25 Verified Metabolic Panel 04:00 Condition: Serious YOLETTE 09/04/25 In Process 19:05 Maintain Bed Rest YOLETTE 09/04/25 In Process 19:05 Sequential YOLETTE 09/04/25 In Process Compression Device Atorvastatin (Lipitor) PHA 09/04/25 In Process 22:00 Folic Acid Tablet PHA 09/05/25 In Process 10:00 Metoprolol Tartrate PHA 09/04/25 In Process Tablet (Lopressor Ta 22:00 Clonidine Hcl Tablet PHA 09/04/25 In Process (Catapres Tablet) 19:15 Acetaminophen Tab Or PHA 09/04/25 In Process Cap (Tylenol Tablet 19:15 Problem List: (1) Generalized weakness (2) Dehydration (3) Bilateral knee pain (4) Acute abdominal pain (5) Acute worsening of stage 3 chronic kidney disease Date of Service: Sep 04, 2025 Billing Provider: TORRES HODGES DNP Common Visit Codes: [id number] INP/OBS CARE (HIGH) TORRES HODGES DNP Sep 04, 2025 20:41
[2025-09-04] MEDS ORDERED: MORPHINE SULFATE INJ 2 MG/ml SYRG IV PRN (20:45)
[2025-09-04] MEDS ORDERED: NITROGLYCERIN 0.4 MG SL TAB SL PRN (20:45)
--- NOTE | 2025-09-04 21:40 | DVH ---
EXAM: XY R TIB FIB XRAY REASON FOR EXAM: fall injury TECHNIQUE: 2 views of the right tibia/fibula COMPARISON: None FINDINGS No fracture or dislocation. No significant periosteal reaction. Off orthogonal views of the knee demonstrate moderate patellofemoral and medial femoral compartment degenerative change. IMPRESSION: No acute osseous abnormality Moderate patellofemoral and medial femorotibial compartment degenerative change
--- NOTE | 2025-09-04 21:45 | DVH ---
EXAM: XY L FEMUR XRAY HISTORY: Fall injury COMPARISON: XY R FEMUR XRAY on DOS: 09/04/25 TECHNIQUE: AP and lateral views of the left femur were performed. FINDINGS: No fracture or subluxation. No significant soft tissue abnormality. No radiopaque foreign body. IMPRESSION: No acute fracture of the left femur.
--- NOTE | 2025-09-04 21:45 | DVH ---
EXAM: XY R FEMUR XRAY INDICATION: Fall injury TECHNIQUE: 2 views of the right femur COMPARISON: None FINDINGS/IMPRESSION: No radiographic evidence of an acute osseous abnormality. There is no acute fracture, osseous malalignment, or aggressive focal osseous lesion. Small suprapatellar knee joint effusion. Small quadriceps insertional enthesophyte.
--- NOTE | 2025-09-04 21:45 | DVH ---
EXAM: XY L TIB FIB XRAY REASON FOR EXAM: fall injury TECHNIQUE: 2 views of the left tibia/fibula COMPARISON: XY R TIB FIB XRAY on DOS: 09/04/25 FINDINGS/ There is no fracture or subluxation. No significant soft tissue abnormality. IMPRESSION: Unremarkable
[2025-09-04] MEDS: METOPROLOL TARTRATE 25 MG TAB PO SCH (22:00)
[2025-09-04] MEDS: InsuLIN REG 1unit/0.01ml Soln (100units/ml) SC SCH (22:00)
[2025-09-04] MEDS: ACCU-CHEK COMFORT CURVE STRIP VI SCH (22:00)
[2025-09-04] MEDS: ATORVASTATIN 20 MG TAB PO SCH (22:00)
[2025-09-04] MEDS: SODIUM CHLOR 0.9% PF (SALINE LOCK) 10ML VIAL/SYR IV SCH (22:00)
[2025-09-04 22:42] VITALS: BP 155/71; PULSE 91; RESP 17; TEMP 97.2; O2SAT 100
[2025-09-04 23:14] VITALS: PULSE 99; RESP 18
[2025-09-05] VITALS (8 sets, daily range): BP systolic 139–165; BP diastolic 66–74; PULSE 68–81; RESP 14–20; TEMP 97.2–97.8; O2SAT 17–98
[2025-09-05] MEDS ORDERED: METF-371 PO (00:15)
[2025-09-05 05:54] LABS: Hematocrit 31.5 % (36.0-46.0); Hemoglobin 10.1 g/dL (12.2-16.2); Mean Corpuscular Hemoglobin 31.0 pg (28.0-32.0); Mean Corpuscular Volume 96.5 fL (80.0-100.0); Nucleated Red Blood Cells % 0.1 %
[2025-09-05 06:13] LABS: Alanine Aminotransferase 13 U/L (7-40); Alkaline Phosphatase 70 U/L (46-116); Anion Gap 13 (5-15); BUN/Creatinine Ratio 9.9 (10.0-20.0); Bilirubin, Total 0.6 mg/dL (0.2-1.0); Blood Urea Nitrogen 14 mg/dL (9-23); Carbon Dioxide 21 mmol/L (20-31); Glucose 91 mg/dL (74-106); Potassium 3.7 mmol/L (3.5-5.1); Sodium 142 mmol/L (136-145); Total Protein 6.1 g/dL (5.7-8.2)
[2025-09-05 06:14] LABS: Albumin 3.1 g/dL (3.2-4.8); Calcium 8.1 mg/dL (8.7-10.4); Chloride 108 mmol/L (98-107)
[2025-09-05] MEDS ORDERED: VERI2.5T PO (09:27)
[2025-09-05] MEDS: FOLIC ACID 1 MG TAB PO SCH (09:29)
[2025-09-05] MEDS: LACTATED RINGER'S 1,000 ML IV SCH (12:45)
--- NOTE | 2025-09-05 12:48 | DVHPN2 ---
Reviewed: Care Plan, H&P, Labs, Medications, Previous Orders, Radiology Changes from previous H/P or p: No Changes Eyes: No Pain, No Vision change, No Conjunctivae inflammation, No Eyelid inflammation, No Other, No Redness ENT: No Ear pain, No Ear discharge, No Nose pain, No Nose discharge, No Nose congestion, No Mouth pain, No Mouth swelling, No Throat pain, No Throat swelling, No Other Cardiovascular: No Chest Pain, No Palpitations, No Orthopnea, No Paroxysmal Noc. Dyspnea, No Edema, No Lt Headedness, No Other Respiratory: No Cough, No Dry, No Shortness of breath, No SOB with excertion, No Wheezing, No Hemoptysis, No Pleuritic Pain, No Sputum, No Other Gastrointestinal: No Nausea, No Vomiting; Abdominal Pain; No Diarrhea, No Constipation, No Melena, No Hematochezia, No Other Genitourinary: No Dysuria, No Frequency, No Incontinence, No Hematuria, No Retention, No Other Musculoskeletal: other (Knee pain); No neck pain, No shoulder pain, No arm pain, No back pain, No hand pain; leg pain; No foot pain Skin: No Rash, No Lesions, No Jaundice, No Bruising, No Other Objective Vitals Vital Signs Date Time Temp Pulse Resp B/P (MAP) Pulse Ox O2 Delivery O2 Flow Rate FiO2 09/05/25 12:34 97.7 71 20 165/70 (101) 97 97.7 09/05/25 08:00 Room Air* 0 21 Intake/Output Intake and Output 09/05/25 07:00 Intake Total 1505 ml Balance 1505 ml Intake Oral 505 ml IV Total 1000 ml # Voids 2 Medications Current Medications Medications Dose Ordered Sig/Josué Route Start Time Stop Time Status Last Admin Dose Admin Diagnostic Test (Pha) 1 strip ACHS 09/04/25 22:00 09/05/25 11:03 1 STRIP Insulin Human Regular ACHS SC 09/04/25 22:00 09/05/25 11:31 2 UNITS Dextrose 50 ml UD PRN IV 09/04/25 19:15 Sodium Chloride 10 ml Q8HR IV 09/04/25 22:00 09/05/25 05:31 10 ML Acetaminophen/ Hydrocodone Bitart 1 tab Q4HP PRN PO 09/04/25 19:15 Ondansetron HCl 4 mg Q4HP PRN IV 09/04/25 19:15 Docusate Sodium 100 mg BIDPRN PRN PO 09/04/25 19:15 Acetaminophen 500 mg Q6HP PRN PO 09/04/25 19:15 Atorvastatin Calcium 10 mg HS PO 09/04/25 22:00 09/04/25 22:00 10 MG Folic Acid 1 mg DAILY PO 09/05/25 10:00 09/05/25 09:29 1 MG Metoprolol Tartrate 25 mg BID PO 09/04/25 22:00 09/05/25 09:30 25 MG Clonidine HCl 0.1 mg Q4HP PRN PO 09/04/25 19:15 09/05/25 12:05 0.1 MG Nitroglycerin 0.4 mg Q5MINP PRN SL 09/04/25 20:45 Morphine Sulfate 2 mg Q30M PRN IV 09/04/25 20:45 Laboratory Results Laboratory Tests 09/05/25 05:32 Chemistry Test 09/04/25 17:00 09/05/25 05:32 Albumin 3.6 g/dL (3.2-4.8) 3.1 g/dL (3.2-4.8) L Calcium Level 9.3 mg/dL (8.7-10.4) 8.1 mg/dL (8.7-10.4) L Total Protein 6.7 g/dL (5.7-8.2) 6.1 g/dL (5.7-8.2) Lipid panel Test 09/04/25 17:00 Lipase 28 U/L (12-53) LFT Test 09/04/25 17:00 09/05/25 05:32 Alanine Aminotransferase (ALT) 18 U/L (7-40) 13 U/L (7-40) Alkaline Phosphatase 81 U/L (46-116) 70 U/L (46-116) Aspartate Amino Transferase (AST) 24 U/L (13-40) 19 U/L (13-40) Total Bilirubin 0.5 mg/dL (0.2-1.0) 0.6 mg/dL (0.2-1.0) Urinalysis Test 09/04/25 17:09 Urine Color Yellow (Yellow) Urine Clarity Turbid (Clear) H Urine pH 5.5 (5.0-9.0) Urine Specific Rice 1.017 (1.001-1.035) Urine Protein 1+ (Negative) H Urine Ketones Trace (Negative) Urine Blood Negative /uL (Negative) Urine Nitrite Negative (Negative) Urine Bilirubin Negative (Negative) Urine Urobilinogen Normal mg/dL (Negative) Urine Leukocyte Esterase Negative /uL (Negative) Urine RBC <1 /hpf (0 - 4) Urine Microscopic WBC 2 /HPF (0-5) Urine Squamous Epithelial Cells Mod /hpf (<5) Urine Bacteria Few /hpf (None Seen) H Urine Mucus Few (None Seen) Urine Glucose Normal mg/dL (Normal) Labs and/or images reviewed: Labs reviewed by me, Image(s) reviewed by me Assessment/Plan Assessment/Plan Acute Generalized weakness Mechanical fall Acute Dehydration: LR 150 per hour Hypertension Diabetes 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 by CT: MRI of the abdomen with and without contrast ordered Hypercholesterolemia Chronic anemia Bilateral knee pain bilateral knee x-rays neg Acute abdominal pain CT abdomen pelvis without contrast negative CT head negative Candi test Pending Rapid flu test pending Lives alone After the fall, the patient was on the floor for 48 hours, order CPK rule out rhabdomyolysis Lipase, D-dimer Acute on chronic kidney disease Time Spent 70 minutes Advanced care planning time 20 minutes Patient is full code Plan discussed with: Patient My Orders Orders - ROBY BRAY MD Procedure Category Date Status Time Rapid Influenza A&B LAB 09/05/25 Logged 12:37 Covid19 Antigen Gis[facility] LAB 09/05/25 Transmitted Date of Service: Sep 05, 2025 Billing Provider: ROBY BRAY MD Common Visit Codes: [id number] INP/OBS CARE(HIGH) ROBY BRAY MD Sep 05, 2025 12:48
[2025-09-05 14:10] LABS: Lipase 34 U/L (12-53)
[2025-09-05 14:12] LABS: Creatine Kinase IFCC 151 U/L (34-145)
[2025-09-05 15:22] LABS: COVID19 ANTIGEN SOFIA FIA NEGATIVE (NEGATIVE)
[2025-09-05] MEDS: ACETAMINOPHEN 500 MG TAB or CAP PO PRN (20:42)
[2025-09-06] VITALS (7 sets, daily range): BP systolic 121–144; BP diastolic 50–97; PULSE 59–72; RESP 14–17; TEMP 96.1–98.1; O2SAT 95–99
[2025-09-06] MEDS: HYDROcodone-ACET 5/325MG TAB PO PRN (00:59)
--- NOTE | 2025-09-06 10:54 | DVHPN2 ---
Reviewed: Care Plan, H&P, Labs, Medications, Previous Orders, Radiology Changes from previous H/P or p: No Changes Eyes: No Pain, No Vision change, No Conjunctivae inflammation, No Eyelid inflammation, No Other, No Redness ENT: No Ear pain, No Ear discharge, No Nose pain, No Nose discharge, No Nose congestion, No Mouth pain, No Mouth swelling, No Throat pain, No Throat swelling, No Other Cardiovascular: No Chest Pain, No Palpitations, No Orthopnea, No Paroxysmal Noc. Dyspnea, No Edema, No Lt Headedness, No Other Respiratory: No Cough, No Dry, No Shortness of breath, No SOB with excertion, No Wheezing, No Hemoptysis, No Pleuritic Pain, No Sputum, No Other Gastrointestinal: No Nausea, No Vomiting; Abdominal Pain; No Diarrhea, No Constipation, No Melena, No Hematochezia, No Other Genitourinary: No Dysuria, No Frequency, No Incontinence, No Hematuria, No Retention, No Other Musculoskeletal: other (Knee pain); No neck pain, No shoulder pain, No arm pain, No back pain, No hand pain; leg pain; No foot pain Skin: No Rash, No Lesions, No Jaundice, No Bruising, No Other Objective Vitals Vital Signs Date Time Temp Pulse Resp B/P (MAP) Pulse Ox O2 Delivery O2 Flow Rate FiO2 09/06/25 09:21 63 125/66 09/06/25 08:30 97.8 17 99 97.8 09/06/25 08:00 Room Air* 0 21 Intake/Output Intake and Output 09/06/25 07:00 Intake Total 2300 ml Output Total 0 ml Balance 2300 ml Intake Oral 1250 ml IV Total 1050 ml Output Stool Total 0 ml # Voids 3 Medications Current Medications Medications Dose Ordered Sig/Josué Route Start Time Stop Time Status Last Admin Dose Admin Diagnostic Test (Pha) 1 strip ACHS 09/04/25 22:00 09/06/25 05:50 1 STRIP Insulin Human Regular ACHS SC 09/04/25 22:00 09/05/25 22:00 2 UNITS Dextrose 50 ml UD PRN IV 09/04/25 19:15 Sodium Chloride 10 ml Q8HR IV 09/04/25 22:00 09/06/25 05:50 10 ML Acetaminophen/ Hydrocodone Bitart 1 tab Q4HP PRN PO 09/04/25 19:15 09/06/25 00:59 1 TAB Ondansetron HCl 4 mg Q4HP PRN IV 09/04/25 19:15 Docusate Sodium 100 mg BIDPRN PRN PO 09/04/25 19:15 Acetaminophen 500 mg Q6HP PRN PO 09/04/25 19:15 09/05/25 20:42 500 MG Atorvastatin Calcium 10 mg HS PO 09/04/25 22:00 09/05/25 20:42 10 MG Folic Acid 1 mg DAILY PO 09/05/25 10:00 09/06/25 09:21 1 MG Metoprolol Tartrate 25 mg BID PO 09/04/25 22:00 09/06/25 09:21 25 MG Clonidine HCl 0.1 mg Q4HP PRN PO 09/04/25 19:15 09/05/25 21:32 0.1 MG Nitroglycerin 0.4 mg Q5MINP PRN SL 09/04/25 20:45 Morphine Sulfate 2 mg Q30M PRN IV 09/04/25 20:45 Lactated Ringer's 1,000 ml @ 150 mls/hr Q6H40M IV 09/05/25 12:45 09/06/25 08:45 150 MLS/HR Laboratory Results Laboratory Tests 09/05/25 05:32 Coagulation Test 09/05/25 14:44 D-Dimer, Quantitative 2.54 mg/L FEU (0.0-0.49) H Urinalysis Test 09/04/25 17:09 Urine Color Yellow (Yellow) Urine Clarity Turbid (Clear) H Urine pH 5.5 (5.0-9.0) Urine Specific [place] 1.017 (1.001-1.035) Urine Protein 1+ (Negative) H Urine Ketones Trace (Negative) Urine Blood Negative /uL (Negative) Urine Nitrite Negative (Negative) Urine Bilirubin Negative (Negative) Urine Urobilinogen Normal mg/dL (Negative) Urine Leukocyte Esterase Negative /uL (Negative) Urine RBC <1 /hpf (0 - 4) Urine Microscopic WBC 2 /HPF (0-5) Urine Squamous Epithelial Cells Mod /hpf (<5) Urine Bacteria Few /hpf (None Seen) H Urine Mucus Few (None Seen) Urine Glucose Normal mg/dL (Normal) Labs and/or images reviewed: Labs reviewed by me, Image(s) reviewed by me Assessment/Plan Assessment/Plan Acute Generalized weakness Mechanical fall Acute Dehydration: LR 150 per hour Hypertension Diabetes 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 by CT: MRI of the abdomen with and without contrast ordered patient did not want the contrast, will do without contrast Hypercholesterolemia Chronic anemia Bilateral knee pain bilateral knee x-rays neg Acute abdominal pain CT abdomen pelvis without contrast negative Acute rhabdomyolysis with CPK 259: IV fluids CT head negative Lipase normal D-dimer 2.5 Venous Ultrasound rule out DVT pending V/Q scan rule out PE pending, patient does not want CT chest angiogram with contrast Candi test negative Rapid flu test negative Patients Daughter Shaneka who lives in [facility], bedside Discussed the diagnosis management and prognosis Acute on chronic kidney disease Time Spent 50 minutes Advanced care planning time 20 minutes Patient is full code Patient lives alone Plan discussed with: Patient My Orders Orders - ROBY BRAY MD Procedure Category Date Status Time Lactated Ringer's PHA 09/05/25 In Process 12:45 Mri Abd Pelvis W/O MRI 09/06/25 Logged Cont 12:46 Date of Service: Sep 06, 2025 Billing Provider: ROBY BRAY MD Common Visit Codes: [id number] INP/OBS CARE(HIGH) Secondary Visit Codes: [id number] CARE PLAN 30 MINUTES ROBY BRAY MD Sep 06, 2025 10:54
--- NOTE | 2025-09-06 12:05 | DVH ---
Bilateral lower extremity venous duplex Clinical History: Elevated D-dimer rule out DVT Comparison: None Technique: Duplex Doppler evaluation of the deep venous systems of both lower extremities from the common femoral veins to the popliteal veins including color Doppler and spectral/pulsed waveform analysis was performed. Findings: RIGHT SIDE: The common femoral vein demonstrates appropriate compressibility and waveform variability. There is compressibility/patency of the great saphenous vein at the proximal thigh. The femoral vein demonstrates appropriate compressibility and waveform variability. The deep femoral vein demonstrates appropriate compressibility and waveform variability. The popliteal vein demonstrates appropriate compressibility and waveform variability. There is normal compressibility at the tibioperoneal trunk. LEFT SIDE: The common femoral vein demonstrates appropriate compressibility and waveform variability. There is compressibility/patency of the great saphenous vein at the proximal thigh. The femoral vein demonstrates appropriate compressibility and waveform variability. The deep femoral vein demonstrates appropriate compressibility and waveform variability. The popliteal vein demonstrates appropriate compressibility and waveform variability. There is normal compressibility at the tibioperoneal trunk. Impression: No right or left femoropopliteal venous thrombosis. Left popliteal fossa cyst measures 2.5 x 1.9 cm.
--- NOTE | 2025-09-06 13:38 | DVH ---
CLINICAL INFORMATION: Abdominal pain. TECHNIQUE: Multisequence multiplanar MRI images of the abdomen and pelvis were obtained without IV contrast. COMPARISON: CT CT AB PEL WO CON-NO ORAL OR IV on DOS: 09/04/25, US RENAL AND BLADDER on DOS: 09/17/24 FINDINGS: Motion artifact limits evaluation on some sequences. There is mild hepatic steatosis. There are gallstones visualized in the gallbladder. No biliary ductal dilatation. Common bile duct measures up to 6.5 mm in diameter, near the upper limits of normal. The spleen appears grossly unremarkable. Lobulated T2 hyperintense mass at the pancreatic tail, may be a complicated cyst or multiple adjacent cysts, measuring up to 3.3 x 3.0 x 3.9 cm. Possible communication with the main pancreatic duct. Main pancreatic duct is normal in diameter, measuring 2 mm. Multiple T2 hyperintense foci in the kidneys bilaterally, most likely cysts, although not well evaluated without postcontrast imaging. Adrenal glands appear grossly unremarkable. There is no abdominal aortic aneurysm. No findings are seen to suggest small bowel obstruction. No free fluid visualized in the abdomen or pelvis. The uterus appears to be surgically absent, although motion artifact limits evaluation, particularly in the pelvis. Bladder appears grossly unremarkable. No significant abnormality identified in the abdominal wall. There is moderate to marked fatty atrophy of the paraspinal musculature in the lower lumbosacral spine. No acute or suspicious osseous abnormality identified. IMPRESSION: 1. Limited examination due to motion artifact and lack of postcontrast images. 2. T2 hyperintense, lobulated mass at the pancreatic tail, may be a complex, multiloculated cyst or multiple adjacent cysts. Cystic neoplasm not excluded. Limited evaluation without postcontrast images. Further evaluation with postcontrast imaging could be considered. Given the size measuring up to 3.9 cm and peripheral calcification seen on CT, EUS/FNA and surgical consultation could be considered if clinically indicated. 3. Cholelithiasis. 4. No acute or suspicious findings are seen in the pelvis, given the limitations of the examination. 5. Additional nonacute findings as described above.
[2025-09-07] VITALS (8 sets, daily range): BP systolic 139–174; BP diastolic 44–79; PULSE 54–71; RESP 16–19; TEMP 97.6–98.1; O2SAT 94–98
[2025-09-07 10:12] LABS: Hepatitis B Surface Antigen Negative (Negative)
[2025-09-07 10:19] LABS: Hepatitis C Antibody Negative (Negative)
--- NOTE | 2025-09-07 12:06 | DVHPN2 ---
Reviewed: Care Plan, H&P, Labs, Medications, Previous Orders, Radiology Changes from previous H/P or p: No Changes Eyes: No Pain, No Vision change, No Conjunctivae inflammation, No Eyelid inflammation, No Other, No Redness ENT: No Ear pain, No Ear discharge, No Nose pain, No Nose discharge, No Nose congestion, No Mouth pain, No Mouth swelling, No Throat pain, No Throat swelling, No Other Cardiovascular: No Chest Pain, No Palpitations, No Orthopnea, No Paroxysmal Noc. Dyspnea, No Edema, No Lt Headedness, No Other Respiratory: No Cough, No Dry, No Shortness of breath, No SOB with excertion, No Wheezing, No Hemoptysis, No Pleuritic Pain, No Sputum, No Other Gastrointestinal: No Nausea, No Vomiting; Abdominal Pain; No Diarrhea, No Constipation, No Melena, No Hematochezia, No Other Genitourinary: No Dysuria, No Frequency, No Incontinence, No Hematuria, No Retention, No Other Musculoskeletal: other (Knee pain); No neck pain, No shoulder pain, No arm pain, No back pain, No hand pain; leg pain; No foot pain Skin: No Rash, No Lesions, No Jaundice, No Bruising, No Other Objective Vitals Vital Signs Date Time Temp Pulse Resp B/P (MAP) Pulse Ox O2 Delivery O2 Flow Rate FiO2 09/07/25 11:32 75 168/44 09/07/25 08:53 98.1 16 98 98.1 09/06/25 20:00 Room Air* 0 21 Intake/Output Intake and Output 09/07/25 07:00 Intake Total 2470 ml Balance 2470 ml Intake Oral 970 ml IV Total 1500 ml # Voids 9 # Bowel Movements 1 Medications Current Medications Medications Dose Ordered Sig/Josué Route Start Time Stop Time Status Last Admin Dose Admin Diagnostic Test (Pha) 1 strip ACHS 09/04/25 22:00 09/07/25 11:42 1 STRIP Insulin Human Regular ACHS SC 09/04/25 22:00 09/07/25 11:43 2 UNITS Dextrose 50 ml UD PRN IV 09/04/25 19:15 Sodium Chloride 10 ml Q8HR IV 09/04/25 22:00 09/07/25 05:15 10 ML Acetaminophen/ Hydrocodone Bitart 1 tab Q4HP PRN PO 09/04/25 19:15 09/06/25 00:59 1 TAB Ondansetron HCl 4 mg Q4HP PRN IV 09/04/25 19:15 Docusate Sodium 100 mg BIDPRN PRN PO 09/04/25 19:15 Acetaminophen 500 mg Q6HP PRN PO 09/04/25 19:15 09/07/25 05:15 500 MG Atorvastatin Calcium 10 mg HS PO 09/04/25 22:00 09/06/25 21:08 10 MG Folic Acid 1 mg DAILY PO 09/05/25 10:00 09/07/25 11:32 1 MG Metoprolol Tartrate 25 mg BID PO 09/04/25 22:00 09/07/25 11:32 25 MG Clonidine HCl 0.1 mg Q4HP PRN PO 09/04/25 19:15 09/05/25 21:32 0.1 MG Nitroglycerin 0.4 mg Q5MINP PRN SL 09/04/25 20:45 Morphine Sulfate 2 mg Q30M PRN IV 09/04/25 20:45 Lactated Ringer's 1,000 ml @ 150 mls/hr Q6H40M IV 09/05/25 12:45 09/06/25 23:10 150 MLS/HR Laboratory Results Laboratory Tests 09/05/25 05:32 Urinalysis Test 09/04/25 17:09 Urine Color Yellow (Yellow) Urine Clarity Turbid (Clear) H Urine pH 5.5 (5.0-9.0) Urine Specific [place] 1.017 (1.001-1.035) Urine Protein 1+ (Negative) H Urine Ketones Trace (Negative) Urine Blood Negative /uL (Negative) Urine Nitrite Negative (Negative) Urine Bilirubin Negative (Negative) Urine Urobilinogen Normal mg/dL (Negative) Urine Leukocyte Esterase Negative /uL (Negative) Urine RBC <1 /hpf (0 - 4) Urine Microscopic WBC 2 /HPF (0-5) Urine Squamous Epithelial Cells Mod /hpf (<5) Urine Bacteria Few /hpf (None Seen) H Urine Mucus Few (None Seen) Urine Glucose Normal mg/dL (Normal) Microbiology Microbiology Date/Time Source Procedure Growth Status 09/06/25 20:10 Stool Received Labs and/or images reviewed: Labs reviewed by me, Image(s) reviewed by me Assessment/Plan Assessment/Plan Acute Generalized weakness Mechanical fall Acute Dehydration: LR 150 per hour Hypertension Diabetes 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 by CT: MRI of the abdomen without IV contrast shows 3.7 cm cystic lesion in the pancreatic tail surgical consult placed Hypercholesterolemia Chronic anemia Bilateral knee pain bilateral knee x-rays neg History of colon cancer status post colectomy with lymphadenectomy March 2025 Ahsan Vila, no colostomy Acute abdominal pain CT abdomen pelvis without contrast negative Acute rhabdomyolysis with CPK 259: Improved to [address] head result pending Lipase normal D-dimer 2.5 DVT ruled out V/Q scan rule out PE pending, patient does not want CT chest angiogram with contrast Candi test negative Rapid flu test negative Patients Daughter Shaneka who lives in [facility], bedside Discussed the diagnosis management and prognosis Acute on chronic kidney disease Time Spent 50 minutes Advanced care planning time 20 minutes Patient is full code Patient lives alone Plan discussed with: Patient Date of Service: Sep 07, 2025 Billing Provider: ROBY BRAY MD Common Visit Codes: [id number] INP/OBS CARE(HIGH) ROBY BRAY MD Sep 07, 2025 12:06
--- NOTE | 2025-09-07 14:24 | DVH ---
EXAM: CT HEAD WITHOUT CONTRAST HISTORY: History of fall at home COMPARISON: None TECHNIQUE: Noncontrast axial CT images of the head were performed. Sagittal and coronal reformatted images were obtained. This CT exam was performed using 1 or more of the following dose reduction techniques: Automated exposure control, adjustment of the mA and/or kv according to patient size, or the use of iterative reconstruction techniques. Radiation Dose: CTDI volume is 51.78 mGy. Dose-length product is 1122.5 mGy*cm FINDINGS: There is mild global brain atrophy. There is mild decreased attenuation in the periventricular white matter. There is a focus of high attenuation in the mid josue measuring up to 3.3 mm (image 30, series 2). No intracranial masses, midline shift, hydrocephalus, or evidence of acute large vessel infarct. There is complete opacification of the bilateral maxillary and frontal sinuses, near- complete opacification of the bilateral ethmoid sinuses. The sphenoid sinuses are clear. There are postoperative changes of Bilateral cataract extraction surgery. The bilateral mastoid air cells and middle ear spaces are clear. No cranial fracture or scalp edema. There is hyperostosis frontalis interna. IMPRESSION: 1. 3.3 mm high attenuation in the mid josue may represent a focus of acute hemorrhage or calcification. Comparison with old head CT would be necessary to make this distinction. In the absence of old imaging, short interval follow-up noncontrast CT head could be performed in 2-4 hours to re-evaluate for stability of this appearance. Noncontrast MRI of the brain to include T2 gradient echo images may also be useful to help determine if this is an acute hemorrhage versus calcification. Neurosurgical consultation is recommended if available. 2. Mild global brain atrophy and chronic ischemic changes. 3. 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 Critical findings Critical Result: Possible pontine acute hemorrhage versus calcification. Findings discussed with nurse Grider on the hospital floor at 09/07/2025 04:20 PM central standard time, and acknowledged receipt and understanding of the findings.
--- NOTE | 2025-09-07 17:32 | DVH ---
PROCEDURE: MRI BRAIN HEAD WO CONTRAST INDICATION: Possible pontine hemorrhage EXAM DATE: 09/07/2025 04:37 PM COMPARISON: CT HEAD WITHOUT CONTRAST on DOS: 09/07/25 TECHNIQUE: MRI of the brain without intravenous contrast. FINDINGS: Diffusion weighted images of the brain demonstrate no evidence of acute infarction. There is no evidence of acute intracranial hemorrhage, extra-axial collection, mass effect, midline shift, herniation or hydrocephalus. In particular, no susceptibility artifact within the central josue at the area of tiny hyperdensity noted on CT. The ventricles, sulci and cisterns appear age appropriate. Moderate generalized cerebral volume loss with scattered foci of increased T2/FLAIR signal in the subcortical, deep, and periventricular white matter of both cerebral hemispheres compatible with mild chronic small vessel ischemia. There are no signal abnormalities on the susceptibility weighted sequences. The major vascular flow voids are present. The visualized paranasal sinuses and mastoid air cells are clear. The surrounding soft tissues and osseous structures are unremarkable. IMPRESSION: No MRI correlate for the tiny hyperdensity within the central josue. This likely favors benign parenchymal calcifications or other hyperdense lesion such as a capillary telangiectasia. Recommend a short-term follow-up CT to confirm stability on CT.
--- NOTE | 2025-09-07 21:59 | DVHINCON2 ---
Date of service: Sep 07, [address] 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 Hawley is a 85 years old right-handed female with a history of hypertension, diabetes, dyslipidemia, colon cancer, breast cancer, she was [facility] to the [facility] on 09/04[facility]2025 with a chief complaint of general weakness. At this time, she is alert and fully oriented, she provided the following history She he lives alone, she had mechanical fall at home without confusion/altered mental status, however was not able to get up, she was on the floor for 2.5 days until a police office came for a wellness checkup on 09/04/2025 (her children called police because she did not answer for more than two days). She had three falls in the last five years, none were with confusion/ALOC. Her CT head showed evidence suggestive of pontine hemorrhage but not confirmed with her MR brain scan For more than 10 years, she has symmetric tremors in both upper extremities when she is eating, writing but not when he is sitting or resting in bed, one and had similar tremors. She does not have diminished facial expression, blinking, or change in her voice. She drinks alcohol rarely, and does not remember how alcohol affected tremors. Her doctor prescribed propranolol one tablets b.i.d. (Ex Med Hx: Propranolol 40 mg b.i.d.) with some improvement. Urinalysis, 09/04/2025: WBC: Two, urine leukocyte esterase: Negative WBC/HB/PLT/MCV,: 7.6/10.1/195/96.5 BUN/CR, 09/05/2025: 14/1.41 Liver function tests, 09/05/2025: Unremarkable TG/HDL/LDL/HDL, 07/24/2024: 237/130/59/43 CT head, 09/07/2025: 1. 3.3 mm high attenuation in the mid josue may represent a focus of acute hemorrhage or calcification. Comparison with old head CT would be necessary to make this distinction. In the absence of old imaging, short interval follow-up noncontrast CT head could be performed in 2-4 hours to re-evaluate for stability of this appearance. Noncontrast MRI of the brain to include T2 gradient echo images may also be useful to help determine if this is an acute hemorrhage versus calcification. Neurosurgical consultation is recommended if available. 2. Mild global brain atrophy and chronic ischemic changes. 3. 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 MRI head, 09/07/2025: No MRI correlate for the tiny hyperdensity within the central josue. This likely favors benign parenchymal calcifications or other hyperdense lesion such as a capillary telangiectasia. Recommend a short-term follow-up CT to confirm stability on CT. Past Medical History Hypertension, diabetes, hyperlipidemia, breast cancer, colon cancer Past Surgical History Colon resection, lumpectomy for breast cancer, appendectomy, cataract surgery, hysterectomy Family History: Cancer G8 SISTER (BREAST CA) FH: gastric ulcer G8 FATHER Family history: Diabetes mellitus G8 BROTHER Stroke G8 MOTHER Family History Diabetes, heart disease, stroke, gastric ulcer, cancer, one aunt had tremors Social History He was a tobacco smoker, but has no history of drug or alcohol abuse Allergies: Coded Allergies: NO KNOWN ALLERGIES (Unverified , 08/31/15) Home Meds Reported Medications Vericiguat (Verquvo) 2.5 Mg Tab, 2.5 MG PO BID, TAB 09/05/25 Metformin Hydrochloride (Metformin Hcl) 850 Mg Tab, 1000 MG PO DAILY for 30 Days, MG 09/05/25 Metformin Hydrochloride (Metformin Hcl) 500 Mg Tab, 1 TAB PO BID, #180 TAB 3 Refills 09/04/25 Propranolol Hcl (Inderal La) 60 Mg Cap, 40 MG PO BID, #90 CAP 1 Refill 08/31/15 Simvastatin (Simvastatin) 40 Mg Tab, 1 TAB PO QPM, #30 TAB 5 Refills 08/31/15 Folic Acid (Folic Acid) 1 Mg Tab, 1 MG PO DAILY for 30 Days, MG 08/31/15 Review of Systems As above, the other systems are negative Vital Signs Vital Signs Date Time Temp Pulse Resp B/P (MAP) Pulse Ox O2 Delivery O2 Flow Rate FiO2 09/07/25 21:00 97.6 67 18 156/65 (95) 98 97.6 09/07/25 08:00 Room Air* 0 21 Physical Exam GENERAL EXAM: General: the patient is well developed and nourished. No acute distress. HEENT: Normocephalic, neck is supple, no carotid bruits. No mass. RESPIRATORY: Normal respiratory effort with symmetrical lung expansion. Lungs clear to auscultation. CARDIOVASCULAR: Regular rate and rhythm with no murmurs. S1, S2. ABDOMEN: Soft, nontender, normal bowel sound NEUROLOGICAL: MENTAL STATUS: Awake and alert. Oriented to person, place, time and general circumstances. Able to give personal history SPEECH, LANGUAGE, HIGHER CORTICAL FUNCTION: no aphasia or dysathria. CRANIAL NERVES: #2: Intact visual balderas to confrontation. The optic discs were sharp. #3,4,6: Pupils are equal, round and reactive. EOMs full and conjugate. No nystagmus. #5: Facial sensation intact in all three divisions bilaterally. Mandibular strength intact. #7: Facial muscles symmetrical and strength intact. #8: Hearing grossly normal to voice. #9,10: Uvula and soft palate rise in the midline. Swallow and voice are normal. #11: Trapezius and sternomastoid strength intact bilaterally. #12: Tongue midline. No fasciculations or atrophy. SENSATION: Sensation to touch and pinprick is normal. MOTOR: Normal tone in the upper and lower extremity. Normal muscle bulk. No fasciculations. Symmetric dynamic tremors in both upper extremity, subtle tremors in the head. Muscle strength of the major groups in the upper extremities is 5/5. She moves both lower extremities REFLEXES: Deep tendon reflexes are symmetrical. No pathological reflexes. CEREBELLAR/COORDINATION: Finger to nose showed symmetric tremors in both hands GAIT/STATION: deferred. Labs/Diagnostic Data Labs Test 09/07/25 17:42 09/06/25 20:10 09/05/25 14:44 09/05/25 14:30 Range/Units POC Glucose 100 70-106 mg/dl Stool for White Cells None seen D-Dimer, Quantitative 2.54 H 0.0-0.49 mg/L FEU Influenza Type A Antigen Negative Negative Influenza Type B Antigen Negative Negative SARS-CoV-2 Antigen (Rapid) Negative NEGATIVE Test 09/05/25 05:32 09/04/25 19:55 09/04/25 17:09 09/04/25 17:00 Range/Units White Blood Count 7.6 4.4-10.8 10^3/uL Red Blood Count 3.27 L 4.0-5.20 10^6/uL Hemoglobin 10.1 L 12.2-16.2 g/dL Hematocrit 31.5 #L 36.0-46.0 % Mean Corpuscular Volume 96.5 80.0-100.0 fL Mean Corpuscular Hemoglobin 31.0 28.0-32.0 pg Mean Corpuscular Hemoglobin Concent 32.2 32.0-36.0 g/dL Red Cell Distribution Width 14.3 11.8-14.3 % Platelet Count 195 140-450 10^3/uL Mean Platelet Volume 7.7 6.9-10.8 fL Neutrophils (%) (Auto) 62.5 37.0-80.0 % Lymphocytes (%) (Auto) 26.2 10.0-50.0 % Monocytes (%) (Auto) 9.5 0.0-12.0 % Eosinophils (%) (Auto) 1.0 0.0-7.0 % Basophils (%) (Auto) 0.8 0.0-2.0 % Neutrophils # (Auto) 4.7 1.6-8.6 10 ^3/uL Lymphocytes # (Auto) 2.0 0.4-5.4 10 ^3/uL Monocytes # (Auto) 0.7 0-1.3 10 ^3/uL Eosinophils # (Auto) 0.1 0-0.8 10 ^3/uL Basophils # (Auto) 0.1 0-0.2 10 ^3/uL Nucleated Red Blood Cells 0.1 % Sodium Level 142 136-145 mmol/L Potassium Level 3.7 3.5-5.1 mmol/L Chloride Level 108 H 98-107 mmol/L Carbon Dioxide Level 21 20-31 mmol/L Anion Gap 13 5-15 Blood Urea Nitrogen 14 9-23 mg/dL Creatinine 1.41 H 0.550-1.02 mg/dL Glomerular Filtration Rate Calc 37 >90 mL/min BUN/Creatinine Ratio 9.9 L 10.0-20.0 Serum Glucose 91 74-106 mg/dL Calcium Level 8.1 L 8.7-10.4 mg/dL Total Bilirubin 0.6 0.2-1.0 mg/dL Aspartate Amino Transferase (AST) 19 13-40 U/L Alanine Aminotransferase (ALT) 13 7-40 U/L Alkaline Phosphatase 70 46-116 U/L Creatine Kinase 151 H 34-145 U/L Total Protein 6.1 5.7-8.2 g/dL Albumin 3.1 L 3.2-4.8 g/dL Lipase 34 12-53 U/L Hepatitis B Surface Antigen Negative Negative Hepatitis C Antibody Negative Negative Troponin I High Sensitivity 19 </=34 ng/L Urine Color Yellow Yellow Urine Clarity Turbid H Clear Urine pH 5.5 5.0-9.0 Urine Specific [place] 1.017 1.001-1.035 Urine Protein 1+ H Negative Urine Ketones Trace Negative Urine Blood Negative Negative /uL Urine Nitrite Negative Negative Urine Bilirubin Negative Negative Urine Urobilinogen Normal Negative mg/dL Urine Leukocyte Esterase Negative Negative /uL Urine RBC <1 0 - 4 /hpf Urine Microscopic WBC 2 0-5 /HPF Urine Squamous Epithelial Cells Mod <5 /hpf Urine Bacteria Few H None Seen /hpf Urine Mucus Few None Seen Urine Glucose Normal Normal mg/dL Lactic Acid Level 1.4 0.4-2.0 mmol/L Microbiology Date/Time Source Procedure Growth Status 09/06/25 20:10 Stool Stool Culture - Preliminary Resulted 09/06/25 20:10 Stool Shiga Toxin I & II - Final Resulted Assessment Abnormal CT brain scan ? Pontine calcification ? Capillary hemangioma Gait disturbance, multifactorial Essential tremors Plan/Recommendation Monitoring Supportive treatment Telemetry Up to chair A trial of Mysoline 25 mg at bedtime Physical therapy Follow up CT head for abnormal pontine imaging More recommendation per clinical course Prognosis: Poor This medical document was created using an electronic medical record system with [employer] dictation system. Although this document has been carefully reviewed, there may still be some phonetic and typographical errors. These areas are purely typographical due to imperfections of the software programs, and do not reflect any compromise in the patient's medical care. Plan discussed with: Patient, Other CHU CRUZ MD Sep 07, 2025 21:59
[2025-09-07] MEDS: PRIMIDONE 50 MG TAB PO ONE (23:00)
[2025-09-08] VITALS (8 sets, daily range): BP systolic 104–163; BP diastolic 41–78; PULSE 61–77; RESP 17–20; TEMP 96.8–98.1; O2SAT 95–97
--- NOTE | 2025-09-08 11:37 | DVHPN2 ---
Reviewed: Care Plan, H&P, Labs, Medications, Previous Orders, Radiology Changes from previous H/P or p: No Changes Eyes: No Pain, No Vision change, No Conjunctivae inflammation, No Eyelid inflammation, No Other, No Redness ENT: No Ear pain, No Ear discharge, No Nose pain, No Nose discharge, No Nose congestion, No Mouth pain, No Mouth swelling, No Throat pain, No Throat swelling, No Other Cardiovascular: No Chest Pain, No Palpitations, No Orthopnea, No Paroxysmal Noc. Dyspnea, No Edema, No Lt Headedness, No Other Respiratory: No Cough, No Dry, No Shortness of breath, No SOB with excertion, No Wheezing, No Hemoptysis, No Pleuritic Pain, No Sputum, No Other Gastrointestinal: No Nausea, No Vomiting; Abdominal Pain; No Diarrhea, No Constipation, No Melena, No Hematochezia, No Other Genitourinary: No Dysuria, No Frequency, No Incontinence, No Hematuria, No Retention, No Other Musculoskeletal: other (Knee pain); No neck pain, No shoulder pain, No arm pain, No back pain, No hand pain; leg pain; No foot pain Skin: No Rash, No Lesions, No Jaundice, No Bruising, No Other Objective Vitals Vital Signs Date Time Temp Pulse Resp B/P (MAP) Pulse Ox O2 Delivery O2 Flow Rate FiO2 09/08/25 09:39 71 154/55 09/08/25 09:00 98.1 19 97 98.1 09/08/25 08:00 Room Air* 0 21 Intake/Output Intake and Output 09/08/25 07:00 Intake Total 850 ml Output Total 600 ml Balance 250 ml Intake Oral 850 ml Output Stool Total 600 ml # Voids 5 # Bowel Movements 2 Medications Current Medications Medications Dose Ordered Sig/Josué Route Start Time Stop Time Status Last Admin Dose Admin Diagnostic Test (Pha) 1 strip ACHS 09/04/25 22:00 09/08/25 11:31 1 STRIP Insulin Human Regular ACHS SC 09/04/25 22:00 09/07/25 11:43 2 UNITS Dextrose 50 ml UD PRN IV 09/04/25 19:15 Sodium Chloride 10 ml Q8HR IV 09/04/25 22:00 09/08/25 06:12 10 ML Acetaminophen/ Hydrocodone Bitart 1 tab Q4HP PRN PO 09/04/25 19:15 09/06/25 00:59 1 TAB Ondansetron HCl 4 mg Q4HP PRN IV 09/04/25 19:15 Docusate Sodium 100 mg BIDPRN PRN PO 09/04/25 19:15 Acetaminophen 500 mg Q6HP PRN PO 09/04/25 19:15 09/07/25 20:23 500 MG Atorvastatin Calcium 10 mg HS PO 09/04/25 22:00 09/07/25 21:51 10 MG Folic Acid 1 mg DAILY PO 09/05/25 10:00 09/08/25 09:38 1 MG Metoprolol Tartrate 25 mg BID PO 09/04/25 22:00 09/08/25 09:39 25 MG Clonidine HCl 0.1 mg Q4HP PRN PO 09/04/25 19:15 09/08/25 06:09 0.1 MG Nitroglycerin 0.4 mg Q5MINP PRN SL 09/04/25 20:45 Morphine Sulfate 2 mg Q30M PRN IV 09/04/25 20:45 Lactated Ringer's 1,000 ml @ 150 mls/hr Q6H40M IV 09/05/25 12:45 09/08/25 02:25 150 MLS/HR Primidone 25 mg HS PO 09/08/25 22:00 Laboratory Results Laboratory Tests 09/05/25 05:32 Urinalysis Test 09/04/25 17:09 Urine Color Yellow (Yellow) Urine Clarity Turbid (Clear) H Urine pH 5.5 (5.0-9.0) Urine Specific [place] 1.017 (1.001-1.035) Urine Protein 1+ (Negative) H Urine Ketones Trace (Negative) Urine Blood Negative /uL (Negative) Urine Nitrite Negative (Negative) Urine Bilirubin Negative (Negative) Urine Urobilinogen Normal mg/dL (Negative) Urine Leukocyte Esterase Negative /uL (Negative) Urine RBC <1 /hpf (0 - 4) Urine Microscopic WBC 2 /HPF (0-5) Urine Squamous Epithelial Cells Mod /hpf (<5) Urine Bacteria Few /hpf (None Seen) H Urine Mucus Few (None Seen) Urine Glucose Normal mg/dL (Normal) Microbiology Microbiology Date/Time Source Procedure Growth Status 09/06/25 20:10 Stool Stool Culture - Preliminary Resulted 09/06/25 20:10 Stool Shiga Toxin I & II - Final Resulted Labs and/or images reviewed: Labs reviewed by me, Image(s) reviewed by me Assessment/Plan Assessment/Plan Acute Generalized weakness Mechanical fall Acute Dehydration: LR 150 per hour Hypertension Diabetes 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 Colleen Post placed Hypercholesterolemia Chronic anemia Bilateral knee pain bilateral knee x-rays neg History of colon cancer status post colectomy with lymphadenectomy March 2025 Ahsan Vila, no colostomy Acute abdominal pain CT abdomen pelvis without contrast negative Acute rhabdomyolysis with CPK 259: Improved to [address] head result pending Lipase normal D-dimer 2.5 DVT ruled out V/Q scan rule out PE pending, patient does not want CT chest angiogram with contrast Possible pontine hemorrhage by CT: Neurology Dr. Paz placed on Mysoline 25 mg p.o. HS Candi test negative Rapid flu test negative Patients Daughter Shaneka who lives in [facility], bedside Discussed the diagnosis management and prognosis Acute on chronic kidney disease Time Spent 50 minutes Advanced care planning time 20 minutes Patient is full code Patient lives alone Plan discussed with: Patient My Orders Orders - ROBY BRAY MD Procedure Category Date Status Time Head Without Contrast CT 09/07/25 Resulted 11:59 * Surgical Consult CONS 09/07/25 Transmitted Brain Head Wo Contrast MRI 09/07/25 Resulted 14:48 * Neurology Consult CONS 09/07/25 Transmitted 14:49 Date of Service: Sep 08, 2025 Billing Provider: ROBY BRAY MD Common Visit Codes: [id number] INP/OBS CARE(HIGH) ROBY BRAY MD Sep 08, 2025 11:37
--- NOTE | 2025-09-08 13:48 | DVHINCON2 ---
GI Consult Consult Note GI consult note Date of Consultation: 09/08/2025 Chief Complaint: Pancreatic mass Referring Physician: Dr. Mike Bray H&P: 85-year-old female with past medical history of DM, hyperlipidemia, anemia and hypertension, recent diagnosis of colon cancer March 2025 status post right hemicolectomy at [facility] with no radiation or chemotherapy, admitted with mechanical fall injury and generalized weakness Patient denies any abdominal pain. No nausea or vomiting. Patient admits to having 20 lb weight loss since her abdominal surgery and reports to having decreased appetite Patient is aware about pancreatic cyst/mass from hospitalization in March 2025 and was diagnosed at [facility]. No follow-up recommended at that time per patient Past Medical History: DM, Hypertension, Hyperlipidemia, Anemia. Past Surgical History: Right hemicolectomy Social History: NO smoking, drinking ETOH and use of illegal drugs. Family History: Noncontributory Review of Systems: Constitutional: no fever, chill, weight loss HEENT: no eye pain, no hearing loss, no oral lesion, no scleral icterus Heart: no chest pain, no chest pressure Lung: no cough, no dyspnea with exertion Abdomen: see HPI Physical exam: General: NAD, AAOX3 Chest: lung balderas clear to auscultation Heart: RRR, no murmur Abdomen: non-distended, no tenderness to palpation, +BS Labs: Labs Test 09/08/25 11:14 09/08/25 05:19 09/06/25 20:10 09/05/25 14:44 Range/Units POC Glucose 124 H 70-106 mg/dl Creatine Kinase 120 34-145 U/L Stool for White Cells None seen D-Dimer, Quantitative 2.54 H 0.0-0.49 mg/L FEU Test 09/05/25 14:30 09/05/25 05:32 09/04/25 19:55 09/04/25 17:09 Range/Units Influenza Type A Antigen Negative Negative Influenza Type B Antigen Negative Negative SARS-CoV-2 Antigen (Rapid) Negative NEGATIVE White Blood Count 7.6 4.4-10.8 10^3/uL Red Blood Count 3.27 L 4.0-5.20 10^6/uL Hemoglobin 10.1 L 12.2-16.2 g/dL Hematocrit 31.5 #L 36.0-46.0 % Mean Corpuscular Volume 96.5 80.0-100.0 fL Mean Corpuscular Hemoglobin 31.0 28.0-32.0 pg Mean Corpuscular Hemoglobin Concent 32.2 32.0-36.0 g/dL Red Cell Distribution Width 14.3 11.8-14.3 % Platelet Count 195 140-450 10^3/uL Mean Platelet Volume 7.7 6.9-10.8 fL Neutrophils (%) (Auto) 62.5 37.0-80.0 % Lymphocytes (%) (Auto) 26.2 10.0-50.0 % Monocytes (%) (Auto) 9.5 0.0-12.0 % Eosinophils (%) (Auto) 1.0 0.0-7.0 % Basophils (%) (Auto) 0.8 0.0-2.0 % Neutrophils # (Auto) 4.7 1.6-8.6 10 ^3/uL Lymphocytes # (Auto) 2.0 0.4-5.4 10 ^3/uL Monocytes # (Auto) 0.7 0-1.3 10 ^3/uL Eosinophils # (Auto) 0.1 0-0.8 10 ^3/uL Basophils # (Auto) 0.1 0-0.2 10 ^3/uL Nucleated Red Blood Cells 0.1 % Sodium Level 142 136-145 mmol/L Potassium Level 3.7 3.5-5.1 mmol/L Chloride Level 108 H 98-107 mmol/L Carbon Dioxide Level 21 20-31 mmol/L Anion Gap 13 5-15 Blood Urea Nitrogen 14 9-23 mg/dL Creatinine 1.41 H 0.550-1.02 mg/dL Glomerular Filtration Rate Calc 37 >90 mL/min BUN/Creatinine Ratio 9.9 L 10.0-20.0 Serum Glucose 91 74-106 mg/dL Calcium Level 8.1 L 8.7-10.4 mg/dL Total Bilirubin 0.6 0.2-1.0 mg/dL Aspartate Amino Transferase (AST) 19 13-40 U/L Alanine Aminotransferase (ALT) 13 7-40 U/L Alkaline Phosphatase 70 46-116 U/L Total Protein 6.1 5.7-8.2 g/dL Albumin 3.1 L 3.2-4.8 g/dL Lipase 34 12-53 U/L Hepatitis B Surface Antigen Negative Negative Hepatitis C Antibody Negative Negative Troponin I High Sensitivity 19 </=34 ng/L Urine Color Yellow Yellow Urine Clarity Turbid H Clear Urine pH 5.5 5.0-9.0 Urine Specific [place] 1.017 1.001-1.035 Urine Protein 1+ H Negative Urine Ketones Trace Negative Urine Blood Negative Negative /uL Urine Nitrite Negative Negative Urine Bilirubin Negative Negative Urine Urobilinogen Normal Negative mg/dL Urine Leukocyte Esterase Negative Negative /uL Urine RBC <1 0 - 4 /hpf Urine Microscopic WBC 2 0-5 /HPF Urine Squamous Epithelial Cells Mod <5 /hpf Urine Bacteria Few H None Seen /hpf Urine Mucus Few None Seen Urine Glucose Normal Normal mg/dL Test 09/04/25 17:00 Range/Units Lactic Acid Level 1.4 0.4-2.0 mmol/L Microbiology Date/Time Source Procedure Growth Status 09/06/25 20:10 Stool Stool Culture - Preliminary Resulted 09/06/25 20:10 Stool Shiga Toxin I & II - Final Resulted Imaging: CT abdomen pelvis IMPRESSION: Cholelithiasis. Low-density lesion in the pancreatic tail with peripheral calcification. This is indeterminate and may represent a pseudocyst or cystic neoplasm. Recommend further evaluation with MRI of the abdomen with and without contrast. Extensive sigmoid diverticulosis. No diverticulitis Prior right hemicolectomy No acute bowel abnormality MRI abdomen and pelvis IMPRESSION: 1. Limited examination due to motion artifact and lack of postcontrast images. 2. T2 hyperintense, lobulated mass at the pancreatic tail, may be a complex, multiloculated cyst or multiple adjacent cysts. Cystic neoplasm not excluded. Limited evaluation without postcontrast images. Further evaluation with postc ontrast imaging could be considered. Given the size measuring up to 3.9 cm and peripheral calcification seen on CT, EUS/FNA and surgical consultation could be considered if clinically indicated. 3. Cholelithiasis. 4. No acute or suspicious findings are seen in the pelvis, given the limitations of the examination. 5. Additional nonacute findings as described above. Assessment: Generalized weakness Mechanical fall History of colon cancer Abnormal CT findings of cyst in pancreatic tail Plan: Discussed with Dr. Post CA 19-9, CEA Obtain records from [facility] Recommend EUS on an outpatient basis possibly at [facility] We will continue to monitor patient Thank you for this consult Date of Service: Sep 08, 2025 Billing Provider: DIONTE BRAY Common Visit Codes: CONSULT ONLY Consultation Codes: [id number] CONSULT <60MIN DIONTE BRAY Sep 08, 2025 13:48
[2025-09-08] MEDS: PRIMIDONE 50 MG TAB PO SCH (21:59)
--- NOTE | 2025-09-08 23:20 | DVHPN2 ---
Progress Note - Dictate Date Seen: Sep 08, 2025 Medical Necessity Reason Pt with a Central, PICC or Fol: No Subjective Ms. Hawley is a 85 years old right-handed female with a history of hypertension, diabetes, dyslipidemia, colon cancer, breast cancer, she was brought to the [facility] on 09/04/2025 with a chief complaint of general weakness. I have seen and examined the patient, talked to her nurse, he is alert and fully oriented, no new complaints No treatment side effects Urinalysis, 09/04/2025: WBC: Two, urine leukocyte esterase: Negative WBC/HB/PLT/MCV,: 7.6/10.1/195/96.5 BUN/CR, 09/05/2025: 14/1.41 Liver function tests, 09/05/2025: Unremarkable TG/HDL/LDL/HDL, 07/24/2024: 237/130/59/43 CT head, 09/07/2025: 1. 3.3 mm high attenuation in the mid josue may represent a focus of acute hemorrhage or calcification. Comparison with old head CT would be necessary to make this distinction. In the absence of old imaging, short interval follow-up noncontrast CT head could be performed in 2-4 hours to re- evaluate for stability of this appearance. Noncontrast MRI of the brain to include T2 gradient echo images may also be useful to help determine if this is an acute hemorrhage versus calcification. Neurosurgical consultation is recommended if available. 2. Mild global brain atrophy and chronic ischemic changes. 3. 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 MRI head, 09/07/2025: No MRI correlate for the tiny hyperdensity within the central josue. This likely favors benign parenchymal calcifications or other hyperdense lesion such as a capillary telangiectasia. Recommend a short-term follow-up CT to confirm stability on CT. vital signs Vital Sign Date Time Temp Pulse Resp B/P (MAP) Pulse Ox O2 Delivery O2 Flow Rate FiO2 09/08/25 21:59 67 116/51 09/08/25 21:00 97.6 17 96 97.6 09/08/25 19:55 Room Air* 0 21 Total Intake and Output 09/07/25 09/07/25 09/08/25 15:00 23:00 07:00 Intake Total 550 ml 300 ml Output Total 600 ml Balance -50 ml 300 ml medications Current Medications Medications Dose Ordered Sig/Josué Route Start Time Stop Time Status Last Admin Dose Admin Diagnostic Test (Pha) 1 strip ACHS 09/04/25 22:00 09/08/25 22:00 1 STRIP Insulin Human Regular ACHS SC 09/04/25 22:00 09/08/25 22:03 3 UNITS Dextrose 50 ml UD PRN IV 09/04/25 19:15 Sodium Chloride 10 ml Q8HR IV 09/04/25 22:00 09/08/25 22:02 10 ML Acetaminophen/ Hydrocodone Bitart 1 tab Q4HP PRN PO 09/04/25 19:15 09/06/25 00:59 1 TAB Ondansetron HCl 4 mg Q4HP PRN IV 09/04/25 19:15 Docusate Sodium 100 mg BIDPRN PRN PO 09/04/25 19:15 Acetaminophen 500 mg Q6HP PRN PO 09/04/25 19:15 09/08/25 19:42 500 MG Atorvastatin Calcium 10 mg HS PO 09/04/25 22:00 09/08/25 21:59 10 MG Folic Acid 1 mg DAILY PO 09/05/25 10:00 09/08/25 09:38 1 MG Metoprolol Tartrate 25 mg BID PO 09/04/25 22:00 09/08/25 21:59 25 MG Clonidine HCl 0.1 mg Q4HP PRN PO 09/04/25 19:15 09/08/25 18:13 0.1 MG Nitroglycerin 0.4 mg Q5MINP PRN SL 09/04/25 20:45 Morphine Sulfate 2 mg Q30M PRN IV 09/04/25 20:45 Primidone 25 mg HS PO 09/08/25 22:00 09/08/25 21:59 25 MG objective General: the patient is well developed and nourished. No acute distress. MENTAL STATUS: Subjective SPEECH, LANGUAGE, HIGHER CORTICAL FUNCTION: no aphasia or dysathria. CRANIAL NERVES: Pupils are equal, round and reactive. EOMs full and conjugate. No nystagmus. Facial sensation intact in all three divisions bilaterally. Mandibular strength intact. Facial muscles symmetrical and strength intact. SENSATION: Sensation to touch and pinprick is normal. MOTOR: Normal tone in the upper and lower extremity. Normal muscle bulk. No fasciculations. Symmetric dynamic tremors in both upper extremity, subtle tremors in the head. Muscle strength of the major groups in the upper extremities is 5/5. She moves both lower extremities REFLEXES: Deep tendon reflexes are symmetrical. No pathological reflexes. CEREBELLAR/COORDINATION: Finger to nose showed symmetric tremors in both hands GAIT/STATION: deferred. laboratory and microbiology Laboratory Tests 09/05/25 05:32 Test 09/05/25 05:32 Range/Units Serum Glucose 91 74-106 mg/dL Problem List Abnormal CT brain scan ? Pontine calcification ? Capillary hemangioma Gait disturbance, multifactorial Essential tremors Assessment/Plan Monitoring Supportive treatment Telemetry Up to chair Mysoline 25 mg at bedtime, consider titration later Physical therapy Follow up CT head for abnormal pontine imaging More recommendation per clinical course This medical document was created using an electronic medical record system with [employer] dictation system. Although this document has been carefully reviewed, there may still be some phonetic and typographical errors. These areas are purely typographical due to imperfections of the software programs, and do not reflect any compromise in the patient's medical care. Prognosis poor Plan discussed with: Patient, Other Total Time (mins): 35 CHU CRUZ MD Sep 08, 2025 23:20
[2025-09-09] VITALS (9 sets, daily range): BP systolic 110–160; BP diastolic 52–67; PULSE 57–78; RESP 15–18; TEMP 97.5–98; O2SAT 96–98
--- NOTE | 2025-09-09 11:53 | DVHPN2 ---
Reviewed: Care Plan, H&P, Labs, Medications, Previous Orders, Radiology Changes from previous H/P or p: No Changes Eyes: No Pain, No Vision change, No Conjunctivae inflammation, No Eyelid inflammation, No Other, No Redness ENT: No Ear pain, No Ear discharge, No Nose pain, No Nose discharge, No Nose congestion, No Mouth pain, No Mouth swelling, No Throat pain, No Throat swelling, No Other Cardiovascular: No Chest Pain, No Palpitations, No Orthopnea, No Paroxysmal Noc. Dyspnea, No Edema, No Lt Headedness, No Other Respiratory: No Cough, No Dry, No Shortness of breath, No SOB with excertion, No Wheezing, No Hemoptysis, No Pleuritic Pain, No Sputum, No Other Gastrointestinal: No Nausea, No Vomiting; Abdominal Pain; No Diarrhea, No Constipation, No Melena, No Hematochezia, No Other Genitourinary: No Dysuria, No Frequency, No Incontinence, No Hematuria, No Retention, No Other Musculoskeletal: other (Knee pain); No neck pain, No shoulder pain, No arm pain, No back pain, No hand pain; leg pain; No foot pain Skin: No Rash, No Lesions, No Jaundice, No Bruising, No Other Objective Vitals Vital Signs Date Time Temp Pulse Resp B/P (MAP) Pulse Ox O2 Delivery O2 Flow Rate FiO2 09/09/25 09:04 65 156/60 09/09/25 08:45 97.9 16 98 97.9 09/08/25 19:55 Room Air* 0 21 Intake/Output Intake and Output 09/09/25 07:00 Intake Total 1470 ml Balance 1470 ml Intake Oral 1120 ml IV Total 350 ml # Voids 6 # Bowel Movements 1 Medications Current Medications Medications Dose Ordered Sig/Josué Route Start Time Stop Time Status Last Admin Dose Admin Diagnostic Test (Pha) 1 strip ACHS 09/04/25 22:00 09/09/25 05:38 1 STRIP Insulin Human Regular ACHS SC 09/04/25 22:00 09/08/25 22:03 3 UNITS Dextrose 50 ml UD PRN IV 09/04/25 19:15 Sodium Chloride 10 ml Q8HR IV 09/04/25 22:00 09/09/25 05:38 10 ML Acetaminophen/ Hydrocodone Bitart 1 tab Q4HP PRN PO 09/04/25 19:15 09/06/25 00:59 1 TAB Ondansetron HCl 4 mg Q4HP PRN IV 09/04/25 19:15 Docusate Sodium 100 mg BIDPRN PRN PO 09/04/25 19:15 Acetaminophen 500 mg Q6HP PRN PO 09/04/25 19:15 09/09/25 10:02 500 MG Atorvastatin Calcium 10 mg HS PO 09/04/25 22:00 09/08/25 21:59 10 MG Folic Acid 1 mg DAILY PO 09/05/25 10:00 09/09/25 09:04 1 MG Metoprolol Tartrate 25 mg BID PO 09/04/25 22:00 09/09/25 09:04 25 MG Clonidine HCl 0.1 mg Q4HP PRN PO 09/04/25 19:15 09/08/25 18:13 0.1 MG Nitroglycerin 0.4 mg Q5MINP PRN SL 09/04/25 20:45 Morphine Sulfate 2 mg Q30M PRN IV 09/04/25 20:45 Primidone 25 mg HS PO 09/08/25 22:00 09/08/25 21:59 25 MG Laboratory Results Laboratory Tests 09/05/25 05:32 Microbiology Microbiology Date/Time Source Procedure Growth Status 09/06/25 20:10 Stool Stool Culture - Preliminary Resulted 09/06/25 20:10 Stool Shiga Toxin I & II - Final Resulted Labs and/or images reviewed: Labs reviewed by me, Image(s) reviewed by me Assessment/Plan Assessment/Plan Acute Generalized weakness Mechanical fall Acute Dehydration: LR 150 per hour Hypertension Diabetes 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 Colleen Post placed; CA 19 -9 , CEA normal, Dr. Colleen Post advised outpatient EUS at higher level of care Hypercholesterolemia Chronic anemia Bilateral knee pain bilateral knee x-rays neg History of colon cancer status post colectomy with lymphadenectomy March 2025 [place], no colostomy Acute abdominal pain CT abdomen pelvis without contrast negative Acute rhabdomyolysis with CPK 259: Improved to [address] head shows calcifications in the josue confirmed by MRI brain Lipase normal D-dimer 2.5 DVT ruled out V/Q scan rule out PE pending, patient does not want CT chest angiogram with contrast Possible pontine hemorrhage by CT: Neurology Dr. Paz placed on Mysoline 25 mg p.o. HS Candi test negative Rapid flu test negative Patients Daughter Shaneka who lives in [facility], bedside Discussed the diagnosis management and prognosis Acute on chronic kidney disease Time Spent 50 minutes Advanced care planning time 20 minutes Patient is full code Patient lives alone Plan discussed with: Patient My Orders Orders - ROBY BRAY MD Procedure Category Date Status Time * Gi Dvh Rubber Tile Floor Layer CONS 09/08/25 Transmitted 11:31 Date of Service: Sep 09, 2025 Billing Provider: ROBY BRAY MD Common Visit Codes: [id number] CARE 30-74 MIN ROBY BRAY MD Sep 09, 2025 11:51
--- NOTE | 2025-09-09 14:21 | DVHPN2 ---
Subjective Patient admits to feeling better Daughter at bedside, [place] patient Tolerating diet well Reviewed: Care Plan, H&P, Labs, Medications, Previous Orders, Radiology Changes from previous H/P or p: No Changes Eyes: No Pain, No Vision change, No Conjunctivae inflammation, No Eyelid inflammation, No Other, No Redness ENT: No Ear pain, No Ear discharge, No Nose pain, No Nose discharge, No Nose congestion, No Mouth pain, No Mouth swelling, No Throat pain, No Throat swelling, No Other Cardiovascular: No Chest Pain, No Palpitations, No Orthopnea, No Paroxysmal Noc. Dyspnea, No Edema, No Lt Headedness, No Other Respiratory: No Cough, No Dry, No Shortness of breath, No SOB with excertion, No Wheezing, No Hemoptysis, No Pleuritic Pain, No Sputum, No Other Gastrointestinal: No Nausea, No Vomiting; Abdominal Pain; No Diarrhea, No Constipation, No Melena, No Hematochezia, No Other Genitourinary: No Dysuria, No Frequency, No Incontinence, No Hematuria, No Retention, No Other Musculoskeletal: other (Knee pain); No neck pain, No shoulder pain, No arm pain, No back pain, No hand pain; leg pain; No foot pain Skin: No Rash, No Lesions, No Jaundice, No Bruising, No Other Objective Vitals Vital Signs Date Time Temp Pulse Resp B/P (MAP) Pulse Ox O2 Delivery O2 Flow Rate FiO2 09/09/25 13:00 97.7 63 15 139/67 (91) 98 97.7 09/09/25 08:00 Room Air* 0 21 Intake/Output Intake and Output 09/09/25 07:00 Intake Total 1470 ml Balance 1470 ml Intake Oral 1120 ml IV Total 350 ml # Voids 6 # Bowel Movements 1 Exam General: NAD, AAOX3 Chest: lung balderas clear to auscultation Heart: RRR, no murmur Abdomen: non-distended, no tenderness to palpation, +BS Medications Current Medications Medications Dose Ordered Sig/Josué Route Start Time Stop Time Status Last Admin Dose Admin Diagnostic Test (Pha) 1 strip ACHS 09/04/25 22:00 09/09/25 12:03 1 STRIP Insulin Human Regular ACHS SC 09/04/25 22:00 09/09/25 12:04 2 UNITS Dextrose 50 ml UD PRN IV 09/04/25 19:15 Sodium Chloride 10 ml Q8HR IV 09/04/25 22:00 09/09/25 05:38 10 ML Acetaminophen/ Hydrocodone Bitart 1 tab Q4HP PRN PO 09/04/25 19:15 09/06/25 00:59 1 TAB Ondansetron HCl 4 mg Q4HP PRN IV 09/04/25 19:15 Docusate Sodium 100 mg BIDPRN PRN PO 09/04/25 19:15 Acetaminophen 500 mg Q6HP PRN PO 09/04/25 19:15 09/09/25 10:02 500 MG Atorvastatin Calcium 10 mg HS PO 09/04/25 22:00 09/08/25 21:59 10 MG Folic Acid 1 mg DAILY PO 09/05/25 10:00 09/09/25 09:04 1 MG Metoprolol Tartrate 25 mg BID PO 09/04/25 22:00 09/09/25 09:04 25 MG Clonidine HCl 0.1 mg Q4HP PRN PO 09/04/25 19:15 09/08/25 18:13 0.1 MG Nitroglycerin 0.4 mg Q5MINP PRN SL 09/04/25 20:45 Morphine Sulfate 2 mg Q30M PRN IV 09/04/25 20:45 Primidone 25 mg HS PO 09/08/25 22:00 09/08/25 21:59 25 MG Laboratory Results Laboratory Tests 09/05/25 05:32 Urinalysis Test 09/04/25 17:09 Urine Color Yellow (Yellow) Urine Clarity Turbid (Clear) H Urine pH 5.5 (5.0-9.0) Urine Specific Maynard 1.017 (1.001-1.035) Urine Protein 1+ (Negative) H Urine Ketones Trace (Negative) Urine Blood Negative /uL (Negative) Urine Nitrite Negative (Negative) Urine Bilirubin Negative (Negative) Urine Urobilinogen Normal mg/dL (Negative) Urine Leukocyte Esterase Negative /uL (Negative) Urine RBC <1 /hpf (0 - 4) Urine Microscopic WBC 2 /HPF (0-5) Urine Squamous Epithelial Cells Mod /hpf (<5) Urine Bacteria Few /hpf (None Seen) H Urine Mucus Few (None Seen) Urine Glucose Normal mg/dL (Normal) Microbiology Microbiology Date/Time Source Procedure Growth Status 09/06/25 20:10 Stool Stool Culture - Final Complete 09/06/25 20:10 Stool Shiga Toxin I & II - Final Complete Assessment/Plan Assessment/Plan Generalized weakness Mechanical fall History of colon cancer Abnormal CT findings of cyst in pancreatic tail Plan: Discussed with Dr. Post Discussed lab results with patient Outpatient GI follow-up recommended Plan discussed with: Patient, Daughter Date of Service: Sep 09, 2025 Billing Provider: DIONTE BRAY Common Visit Codes: [id number] INP/OBS CARE(HIGH) DIONTE BRAY Sep 09, 2025 14:21
--- NOTE | 2025-09-09 23:17 | DVHPN2 ---
Progress Note - Dictate Date Seen: Sep 09, 2025 Medical Necessity Reason Pt with a Central, PICC or Fol: No Subjective Ms. Hawley is a 85 years old right-handed female with a history of hypertension, diabetes, dyslipidemia, colon cancer, breast cancer, she was brought to the [facility] on 09/04/2025 with a chief complaint of general weakness. I have seen and examined the patient, talked to her nurse, he is alert and fully oriented, she reports the tremor is much better, she can feed herself, though the tremor persists No treatment side effects Urinalysis, 09/04/2025: WBC: Two, urine leukocyte esterase: Negative WBC/HB/PLT/MCV,: 7.6/10.1/195/96.5 BUN/CR, 09/05/2025: 14/1.41 Liver function tests, 09/05/2025: Unremarkable TG/HDL/LDL/HDL, 07/24/2024: 237/130/59/43 CT head, 09/07/2025: 1. 3.3 mm high attenuation in the mid josue may represent a focus of acute hemorrhage or calcification. Comparison with old head CT would be necessary to make this distinction. In the absence of old imaging, short interval follow-up noncontrast CT head could be performed in 2-4 hours to re- evaluate for stability of this appearance. Noncontrast MRI of the brain to include T2 gradient echo images may also be useful to help determine if this is an acute hemorrhage versus calcification. Neurosurgical consultation is recommended if available. 2. Mild global brain atrophy and chronic ischemic changes. 3. 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 MRI head, 09/07/2025: No MRI correlate for the tiny hyperdensity within the central josue. This likely favors benign parenchymal calcifications or other hyperdense lesion such as a capillary telangiectasia. Recommend a short-term follow-up CT to confirm stability on CT. vital signs Vital Sign Date Time Temp Pulse Resp B/P (MAP) Pulse Ox O2 Delivery O2 Flow Rate FiO2 09/09/25 21:27 71 148/52 09/09/25 16:35 98.0 15 97 98.0 09/09/25 08:00 Room Air* 0 21 Total Intake and Output 09/08/25 09/08/25 09/09/25 15:00 23:00 07:00 Intake Total 350 ml 720 ml 400 ml Balance 350 ml 720 ml 400 ml medications Current Medications Medications Dose Ordered Sig/Josué Route Start Time Stop Time Status Last Admin Dose Admin Diagnostic Test (Pha) 1 strip ACHS 09/04/25 22:00 09/09/25 21:29 1 STRIP Insulin Human Regular ACHS SC 09/04/25 22:00 09/09/25 12:04 2 UNITS Dextrose 50 ml UD PRN IV 09/04/25 19:15 Sodium Chloride 10 ml Q8HR IV 09/04/25 22:00 09/09/25 21:27 10 ML Acetaminophen/ Hydrocodone Bitart 1 tab Q4HP PRN PO 09/04/25 19:15 09/06/25 00:59 1 TAB Ondansetron HCl 4 mg Q4HP PRN IV 09/04/25 19:15 Docusate Sodium 100 mg BIDPRN PRN PO 09/04/25 19:15 Acetaminophen 500 mg Q6HP PRN PO 09/04/25 19:15 09/09/25 10:02 500 MG Atorvastatin Calcium 10 mg HS PO 09/04/25 22:00 09/09/25 21:26 10 MG Folic Acid 1 mg DAILY PO 09/05/25 10:00 09/09/25 09:04 1 MG Metoprolol Tartrate 25 mg BID PO 09/04/25 22:00 09/09/25 21:27 25 MG Clonidine HCl 0.1 mg Q4HP PRN PO 09/04/25 19:15 09/08/25 18:13 0.1 MG Nitroglycerin 0.4 mg Q5MINP PRN SL 09/04/25 20:45 Morphine Sulfate 2 mg Q30M PRN IV 09/04/25 20:45 Primidone 25 mg HS PO 09/08/25 22:00 09/09/25 21:26 25 MG objective General: the patient is well developed and nourished. No acute distress. MENTAL STATUS: Subjective SPEECH, LANGUAGE, HIGHER CORTICAL FUNCTION: no aphasia or dysathria. CRANIAL NERVES: Pupils are equal, round and reactive. EOMs full and conjugate. No nystagmus. Facial sensation intact in all three divisions bilaterally. Mandibular strength intact. Facial muscles symmetrical and strength intact. SENSATION: Sensation to touch and pinprick is normal. MOTOR: Normal tone in the upper and lower extremity. Normal muscle bulk. No fasciculations. Symmetric dynamic tremors in both upper extremity, subtle tremors in the head. Muscle strength of the major groups in the upper extremities is 5/5. She moves both lower extremities REFLEXES: Deep tendon reflexes are symmetrical. No pathological reflexes. CEREBELLAR/COORDINATION: Finger to nose showed symmetric tremors in both hands GAIT/STATION: deferred. laboratory and microbiology Laboratory Tests 09/05/25 05:32 Test 09/05/25 05:32 Range/Units Serum Glucose 91 74-106 mg/dL Problem List Abnormal CT brain scan ? Pontine calcification ? Capillary hemangioma Gait disturbance, multifactorial Essential tremors Assessment/Plan Monitoring Supportive treatment Telemetry Up to chair Mysoline 25 mg at bedtime, consider titration later Physical therapy Follow up CT head for abnormal pontine imaging More recommendation per clinical course This medical document was created using an electronic medical record system with [employer] dictation system. Although this document has been carefully reviewed, there may still be some phonetic and typographical errors. These areas are purely typographical due to imperfections of the software programs, and do not reflect any compromise in the patient's medical care. Prognosis poor Plan discussed with: Patient, Other CHU CRUZ MD Sep 09, 2025 23:17
[2025-09-10] VITALS (8 sets, daily range): BP systolic 135–179; BP diastolic 50–76; PULSE 67–89; RESP 16–20; TEMP 97.6–98.3; O2SAT 94–99
--- NOTE | 2025-09-10 10:26 | DVHPN2 ---
Progress Note - Dictate Date Seen: Sep 10, 2025 Medical Necessity Reason Pt with a Central, PICC or Fol: No Subjective Ms. Hawley is a 85 years old right-handed female with a history of hypertension, diabetes, dyslipidemia, colon cancer, breast cancer, she was brought to the [facility] on 09/04/2025 with a chief complaint of general weakness. I have seen and examined the patient, talked to her nurse, he is alert and fully oriented, she reports the tremor is much better, she she fed herself yesterday, and this morning, but per my observation, this obvious tremors when she was drinking water. No treatment side effects She agreed to increase the Mysoline dosage Urinalysis, 09/04/2025: WBC: Two, urine leukocyte esterase: Negative WBC/HB/PLT/MCV,: 7.6/10.1/195/96.5 BUN/CR, 09/05/2025: 14/1.41 Liver function tests, 09/05/2025: Unremarkable TG/HDL/LDL/HDL, 07/24/2024: 237/130/59/43 CT head, 09/07/2025: 1. 3.3 mm high attenuation in the mid josue may represent a focus of acute hemorrhage or calcification. Comparison with old head CT would be necessary to make this distinction. In the absence of old imaging, short interval follow-up noncontrast CT head could be performed in 2-4 hours to re- evaluate for stability of this appearance. Noncontrast MRI of the brain to include T2 gradient echo images may also be useful to help determine if this is an acute hemorrhage versus calcification. Neurosurgical consultation is recommended if available. 2. Mild global brain atrophy and chronic ischemic changes. 3. 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 MRI head, 09/07/2025: No MRI correlate for the tiny hyperdensity within the central josue. This likely favors benign parenchymal calcifications or other hyperdense lesion such as a capillary telangiectasia. Recommend a short-term follow-up CT to confirm stability on CT. vital signs Vital Sign Date Time Temp Pulse Resp B/P (MAP) Pulse Ox O2 Delivery O2 Flow Rate FiO2 09/10/25 09:57 73 151/55 09/10/25 09:00 98.3 18 94 98.3 09/10/25 08:00 Room Air* 0 21 Total Intake and Output 09/09/25 09/09/25 09/10/25 15:00 23:00 07:00 Intake Total 1000 ml 800 ml Balance 1000 ml 800 ml medications Current Medications Medications Dose Ordered Sig/Josué Route Start Time Stop Time Status Last Admin Dose Admin Diagnostic Test (Pha) 1 strip ACHS 09/04/25 22:00 09/10/25 06:50 1 STRIP Insulin Human Regular ACHS SC 09/04/25 22:00 09/09/25 12:04 2 UNITS Dextrose 50 ml UD PRN IV 09/04/25 19:15 Sodium Chloride 10 ml Q8HR IV 09/04/25 22:00 09/10/25 06:49 10 ML Acetaminophen/ Hydrocodone Bitart 1 tab Q4HP PRN PO 09/04/25 19:15 09/06/25 00:59 1 TAB Ondansetron HCl 4 mg Q4HP PRN IV 09/04/25 19:15 Docusate Sodium 100 mg BIDPRN PRN PO 09/04/25 19:15 Acetaminophen 500 mg Q6HP PRN PO 09/04/25 19:15 09/09/25 10:02 500 MG Atorvastatin Calcium 10 mg HS PO 09/04/25 22:00 09/09/25 21:26 10 MG Folic Acid 1 mg DAILY PO 09/05/25 10:00 09/10/25 09:57 1 MG Metoprolol Tartrate 25 mg BID PO 09/04/25 22:00 09/10/25 09:57 25 MG Clonidine HCl 0.1 mg Q4HP PRN PO 09/04/25 19:15 09/08/25 18:13 0.1 MG Nitroglycerin 0.4 mg Q5MINP PRN SL 09/04/25 20:45 Morphine Sulfate 2 mg Q30M PRN IV 09/04/25 20:45 Primidone 25 mg HS PO 09/08/25 22:00 09/09/25 21:26 25 MG objective General: the patient is well developed and nourished. No acute distress. MENTAL STATUS: Subjective SPEECH, LANGUAGE, HIGHER CORTICAL FUNCTION: no aphasia or dysathria. CRANIAL NERVES: Pupils are equal, round and reactive. EOMs full and conjugate. No nystagmus. Facial sensation intact in all three divisions bilaterally. Mandibular strength intact. Facial muscles symmetrical and strength intact. SENSATION: Sensation to touch and pinprick is normal. MOTOR: Normal tone in the upper and lower extremity. Normal muscle bulk. No fasciculations. Symmetric dynamic tremors in both upper extremity, subtle tremors in the head. Muscle strength of the major groups in the upper extremities is 5/5. She moves both lower extremities REFLEXES: Deep tendon reflexes are symmetrical. No pathological reflexes. CEREBELLAR/COORDINATION: Finger to nose showed symmetric tremors in both hands GAIT/STATION: deferred. laboratory and microbiology Laboratory Tests 09/05/25 05:32 Test 09/05/25 05:32 Range/Units Serum Glucose 91 74-106 mg/dL Problem List Abnormal CT brain scan ? Pontine calcification ? Capillary hemangioma Gait disturbance, multifactorial Essential tremors Assessment/Plan Monitoring Supportive treatment Telemetry Up to chair Increase Mysoline to 50 mg at bedtime, consider titration later Physical therapy Follow up CT head for abnormal pontine imaging More recommendation per clinical course This medical document was created using an electronic medical record system with [employer] computerized dictation system. Although this document has been carefully reviewed, there may still be some phonetic and typographical errors. These areas are purely typographical due to imperfections of the software programs, and do not reflect any compromise in the patient's medical care. Prognosis poor Plan discussed with: Patient, Other CHU CRUZ MD Sep 10, 2025 10:26
[2025-09-10] MEDS: PRIMIDONE 50 MG TAB PO SCH (10:30)
--- NOTE | 2025-09-10 11:45 | DVH ---
NUCLEAR MEDICINE VENTILATION/PERFUSION LUNG SCAN. INDICATION: Shortness of breath COMPARISON: None TECHNIQUE: Following intravenous demonstration of 5 millicuries of technetium 99m MAA, and inhalation of 5 mCi of Xe 133 scintigrams were obtained in multiple projections of the lungs. FINDINGS: There is normal uptake of radionuclide on both the ventilation and perfusion portions of the examination. No mismatched perfusion defects are demonstrated. Uptake is normally homogeneous. IMPRESSION: Low probability for PE. OS ESQUEDA
[2025-09-10] MEDS: METOPROLOL TARTRATE 25 MG TAB PO SCH (12:30)
--- NOTE | 2025-09-10 12:36 | DVHPN2 ---
Reviewed: Care Plan, H&P, Labs, Medications, Previous Orders, Radiology Changes from previous H/P or p: No Changes Eyes: No Pain, No Vision change, No Conjunctivae inflammation, No Eyelid inflammation, No Other, No Redness ENT: No Ear pain, No Ear discharge, No Nose pain, No Nose discharge, No Nose congestion, No Mouth pain, No Mouth swelling, No Throat pain, No Throat swelling, No Other Cardiovascular: No Chest Pain, No Palpitations, No Orthopnea, No Paroxysmal Noc. Dyspnea, No Edema, No Lt Headedness, No Other Respiratory: No Cough, No Dry, No Shortness of breath, No SOB with excertion, No Wheezing, No Hemoptysis, No Pleuritic Pain, No Sputum, No Other Gastrointestinal: No Nausea, No Vomiting; Abdominal Pain; No Diarrhea, No Constipation, No Melena, No Hematochezia, No Other Genitourinary: No Dysuria, No Frequency, No Incontinence, No Hematuria, No Retention, No Other Musculoskeletal: other (Knee pain); No neck pain, No shoulder pain, No arm pain, No back pain, No hand pain; leg pain; No foot pain Skin: No Rash, No Lesions, No Jaundice, No Bruising, No Other Objective Vitals Vital Signs Date Time Temp Pulse Resp B/P (MAP) Pulse Ox O2 Delivery O2 Flow Rate FiO2 09/10/25 12:02 170/58 09/10/25 11:49 97.8 89 20 97 97.8 09/10/25 08:00 Room Air* 0 21 Intake/Output Intake and Output 09/10/25 07:00 Intake Total 1800 ml Balance 1800 ml Intake Oral 1800 ml # Voids 4 Medications Current Medications Medications Dose Ordered Sig/Josué Route Start Time Stop Time Status Last Admin Dose Admin Diagnostic Test (Pha) 1 strip ACHS 09/04/25 22:00 09/10/25 06:50 1 STRIP Insulin Human Regular ACHS SC 09/04/25 22:00 09/10/25 11:56 2 UNITS Dextrose 50 ml UD PRN IV 09/04/25 19:15 Sodium Chloride 10 ml Q8HR IV 09/04/25 22:00 09/10/25 06:49 10 ML Acetaminophen/ Hydrocodone Bitart 1 tab Q4HP PRN PO 09/04/25 19:15 09/06/25 00:59 1 TAB Ondansetron HCl 4 mg Q4HP PRN IV 09/04/25 19:15 Docusate Sodium 100 mg BIDPRN PRN PO 09/04/25 19:15 Acetaminophen 500 mg Q6HP PRN PO 09/04/25 19:15 09/10/25 10:30 500 MG Atorvastatin Calcium 10 mg HS PO 09/04/25 22:00 09/09/25 21:26 10 MG Folic Acid 1 mg DAILY PO 09/05/25 10:00 09/10/25 09:57 1 MG Metoprolol Tartrate 25 mg BID PO 09/04/25 22:00 09/10/25 09:57 25 MG Clonidine HCl 0.1 mg Q4HP PRN PO 09/04/25 19:15 09/10/25 12:02 0.1 MG Nitroglycerin 0.4 mg Q5MINP PRN SL 09/04/25 20:45 Morphine Sulfate 2 mg Q30M PRN IV 09/04/25 20:45 Primidone 50 mg HS PO 09/10/25 10:30 Laboratory Results Laboratory Tests 09/05/25 05:32 Urinalysis Test 09/04/25 17:09 Urine Color Yellow (Yellow) Urine Clarity Turbid (Clear) H Urine pH 5.5 (5.0-9.0) Urine Specific [place] 1.017 (1.001-1.035) Urine Protein 1+ (Negative) H Urine Ketones Trace (Negative) Urine Blood Negative /uL (Negative) Urine Nitrite Negative (Negative) Urine Bilirubin Negative (Negative) Urine Urobilinogen Normal mg/dL (Negative) Urine Leukocyte Esterase Negative /uL (Negative) Urine RBC <1 /hpf (0 - 4) Urine Microscopic WBC 2 /HPF (0-5) Urine Squamous Epithelial Cells Mod /hpf (<5) Urine Bacteria Few /hpf (None Seen) H Urine Mucus Few (None Seen) Urine Glucose Normal mg/dL (Normal) Microbiology Microbiology Date/Time Source Procedure Growth Status 09/06/25 20:10 Stool Stool Culture - Final Complete 09/06/25 20:10 Stool Shiga Toxin I & II - Final Complete Assessment/Plan Assessment/Plan Acute Generalized weakness Mechanical fall Acute Dehydration: LR 150 per hour Hypertension Diabetes 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 Colleen Post placed; CA 19 -9 , CEA normal, Dr. Colleen Post advised outpatient EUS at higher level of care Hypercholesterolemia Chronic anemia Bilateral knee pain bilateral knee x-rays neg History of colon cancer status post colectomy with lymphadenectomy March 2025 [facility] [place], no colostomy Acute abdominal pain CT abdomen pelvis without contrast negative Acute rhabdomyolysis with CPK 259: Improved to [address] head shows calcifications in the josue confirmed by MRI brain Lipase normal D-dimer 2.5 DVT ruled out PE ruled out Possible pontine hemorrhage by CT: Neurology Dr. Paz placed on Mysoline 25 mg p.o. HS Candi test negative Rapid flu test negative Patients Daughter Shaneka who lives in [facility], bedside Discussed the diagnosis management and prognosis Acute on chronic kidney disease Time Spent 50 minutes Advanced care planning time 20 minutes Patient is full code Patient lives alone Plan discussed with: Patient My Orders Orders - ROBY BRAY MD Procedure Category Date Status Time Clonidine Hcl Tablet PHA 09/10/25 Logged (Catapres Tablet) 12:30 Metoprolol Tartrate PHA 09/10/25 Logged Tablet (Lopressor Ta 12:30 * Road Super[employer] CONS 09/10/25 Transmitted Consult Date of Service: Sep 10, 2025 Billing Provider: ROBY BRAY MD Common Visit Codes: [id number] INP/OBS CARE(HIGH) ROBY BRAY MD Sep 10, 2025 12:36
--- NOTE | 2025-09-10 12:41 | DVHDS2 ---
Discharge Summary Date of Admission Sep 04, 2025 at 20:40 Date of Discharge: Sep 10, 2025 Admitting Diagnosis Fall at home Wounds: None Labs/Diagnostic Data: Laboratory Results Test 09/10/25 06:29 09/08/25 14:14 09/08/25 05:19 09/06/25 20:10 POC Glucose 82 mg/dl (70-106) CA 19-9 Antigen 12 U/mL (0-35) Creatine Kinase 120 U/L (34-145) Carcinoembryonic Antigen 2.24 ng/mL (<=5.0) Stool for White Cells None seen Test 09/05/25 14:44 09/05/25 14:30 09/05/25 05:32 09/04/25 19:55 D-Dimer, Quantitative 2.54 mg/L FEU (0.0-0.49) Influenza Type A Antigen Negative (Negative) Influenza Type B Antigen Negative (Negative) SARS-CoV-2 Antigen (Rapid) Negative (NEGATIVE) White Blood Count 7.6 10^3/uL (4.4-10.8) Red Blood Count 3.27 10^6/uL (4.0-5.20) Hemoglobin 10.1 g/dL (12.2-16.2) Hematocrit 31.5 % (36.0-46.0) Mean Corpuscular Volume 96.5 fL (80.0-100.0) Mean Corpuscular Hemoglobin 31.0 pg (28.0-32.0) Mean Corpuscular Hemoglobin Concent 32.2 g/dL (32.0-36.0) Red Cell Distribution Width 14.3 % (11.8-14.3) Platelet Count 195 10^3/uL (140-450) Mean Platelet Volume 7.7 fL (6.9-10.8) Neutrophils (%) (Auto) 62.5 % (37.0-80.0) Lymphocytes (%) (Auto) 26.2 % (10.0-50.0) Monocytes (%) (Auto) 9.5 % (0.0-12.0) Eosinophils (%) (Auto) 1.0 % (0.0-7.0) Basophils (%) (Auto) 0.8 % (0.0-2.0) Neutrophils # (Auto) 4.7 10 ^3/uL (1.6-8.6) Lymphocytes # (Auto) 2.0 10 ^3/uL (0.4-5.4) Monocytes # (Auto) 0.7 10 ^3/uL (0-1.3) Eosinophils # (Auto) 0.1 10 ^3/uL (0-0.8) Basophils # (Auto) 0.1 10 ^3/uL (0-0.2) Nucleated Red Blood Cells 0.1 % Sodium Level 142 mmol/L (136-145) Potassium Level 3.7 mmol/L (3.5-5.1) Chloride Level 108 mmol/L (98-107) Carbon Dioxide Level 21 mmol/L (20-31) Anion Gap 13 (5-15) Blood Urea Nitrogen 14 mg/dL (9-23) Creatinine 1.41 mg/dL (0.550-1.02) Glomerular Filtration Rate Calc 37 mL/min (>90) BUN/Creatinine Ratio 9.9 (10.0-20.0) Serum Glucose 91 mg/dL (74-106) Calcium Level 8.1 mg/dL (8.7-10.4) Total Bilirubin 0.6 mg/dL (0.2-1.0) Aspartate Amino Transferase (AST) 19 U/L (13-40) Alanine Aminotransferase (ALT) 13 U/L (7-40) Alkaline Phosphatase 70 U/L (46-116) Total Protein 6.1 g/dL (5.7-8.2) Albumin 3.1 g/dL (3.2-4.8) Lipase 34 U/L (12-53) Hepatitis B Surface Antigen Negative (Negative) Hepatitis C Antibody Negative (Negative) Troponin I High Sensitivity 19 ng/L (</=34) Test 09/04/25 17:09 09/04/25 17:00 Urine Color Yellow (Yellow) Urine Clarity Turbid (Clear) Urine pH 5.5 (5.0-9.0) Urine Specific [place] 1.017 (1.001-1.035) Urine Protein 1+ (Negative) Urine Ketones Trace (Negative) Urine Blood Negative /uL (Negative) Urine Nitrite Negative (Negative) Urine Bilirubin Negative (Negative) Urine Urobilinogen Normal mg/dL (Negative) Urine Leukocyte Esterase Negative /uL (Negative) Urine RBC <1 /hpf (0 - 4) Urine Microscopic WBC 2 /HPF (0-5) Urine Squamous Epithelial Cells Mod /hpf (<5) Urine Bacteria Few /hpf (None Seen) Urine Mucus Few (None Seen) Urine Glucose Normal mg/dL (Normal) Lactic Acid Level 1.4 mmol/L (0.4-2.0) Other Laboratory Tests 09/05/25 05:32 Brief Hx & Hospital Course: 85-year-old female with a history of hypertension diabetes hypercholesterolemia chronic anemia history of colon cancer status post colectomy with lymphadenectomy March 2025 at [place] brought in by family to the ER with a history that she fell and was lying on the floor for 48 hours. The daughter lives in [facility] and patient lives alone pill in patient has had rhabdomyolysis with CPK 259 improved with the IV fluids. Rocephin D-dimer elevated 2.5 DVT ruled out PE ruled out Candi test negative rapid flu test negative. 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 Paz advised physical therapy pain management. Patient has had a cyst in the pancreatic tail by CT about 3.7 cm surgical consult was cardiology he recommended GI consult GI consult by Dr. Colleen Post advised outpatient EUS and pancreatic biopsy at higher level of care once the patient is stable CA 19 -9 normal CEA normal discussed with the patient's daughter Franny at bedside and she does not want any aggressive management. The patient being discharged to half-way facility for rehab as she lives alone and has been falling frequently. The plan agreeable with the patient and the daughter Consults/Reason for consult Neurology Dr. 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 Colleen Post placed; CA 19 -9 , CEA normal, Dr. Colleen Post advised outpatient EUS at higher level of care Hypercholesterolemia Chronic anemia Bilateral knee pain bilateral knee x-rays neg History of colon cancer status post colectomy with lymphadenectomy March 2025 [place], no colostomy Acute abdominal pain CT abdomen pelvis without contrast negative Acute rhabdomyolysis with CPK 259: Improved to [address] head shows calcifications in the josue confirmed by MRI brain Lipase normal D-dimer 2.5 DVT ruled out PE ruled out Possible pontine hemorrhage by CT: Neurology Dr. Paz placed on Mysoline 25 mg p.o. HS Candi test negative Rapid flu test negative Discharge Disposition: Assisted Facility Discharge Instruct/Medications Diet: Cardiac 2g Na,low cholest Diet comment: When bed is available Activity: Light activity Follow Up/Referral: Follow up with the [facility] Medications: see list Scheduled Folic Acid (Folic Acid), 1 MG PO DAILY, (Reported) Metformin Hydrochloride (Metformin Hcl), 1,000 MG PO DAILY, (Reported) Propranolol Hcl (Inderal La), 40 MG PO BID, (Reported) Simvastatin (Simvastatin), 1 TAB PO QPM, (Reported) Vericiguat (Verquvo), 2.5 MG PO BID, (Reported) Discontinued Medications Metformin Hydrochloride (Metformin Hcl), 1 TAB PO BID, (Reported) 39 (Time taken for discharge summary 39 minutes) Discharge Statement: "Patient was advised to return to the ER or call 911 if any headaches, dizziness, shortness of breath, chest pain, abdominal pain, bleeding, fevers, or worsening of medical condition. Patient was counseled about treatment plan, medications, possible side effects, patientverbalized understanding. All questions were answered to the best of my ability. 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 Colleen Post placed; CA 19 -9 , CEA normal, Dr. Colleen Post advised outpatient EUS at higher level of care Hypercholesterolemia Chronic anemia Bilateral knee pain bilateral knee x-rays neg History of colon cancer status post colectomy with lymphadenectomy March 2025 [place], no colostomy Acute abdominal pain CT abdomen pelvis without contrast negative Acute rhabdomyolysis with CPK 259: Improved to [address] head shows calcifications in the josue confirmed by MRI brain Lipase normal D-dimer 2.5 DVT ruled out PE ruled out Possible pontine hemorrhage by CT: Neurology Dr. Paz placed on Mysoline 25 mg p.o. HS Candi test negative Rapid flu test negative Date of Service: Sep 10, 2025 Billing Provider: ROBY BRAY MD Common Visit Codes: [id number] DISCH DAY >30min ROBY BRAY MD Sep 10, 2025 12:41
--- NOTE | 2025-09-10 13:23 | DVHPN2 ---
Subjective Patient admits to feeling better Daughter at bedside Tolerating diet well Reviewed: Care Plan, H&P, Labs, Medications, Previous Orders, Radiology Changes from previous H/P or p: No Changes Objective Vitals Vital Signs Date Time Temp Pulse Resp B/P (MAP) Pulse Ox O2 Delivery O2 Flow Rate FiO2 09/10/25 12:02 170/58 09/10/25 11:49 97.8 89 20 97 97.8 09/10/25 08:00 Room Air* 0 21 Intake/Output Intake and Output 09/10/25 07:00 Intake Total 1800 ml Balance 1800 ml Intake Oral 1800 ml # Voids 4 Exam General: NAD, AAOX3 Chest: lung balderas clear to auscultation Heart: RRR, no murmur Abdomen: non-distended, no tenderness to palpation, +BS Medications Current Medications Medications Dose Ordered Sig/Josué Route Start Time Stop Time Status Last Admin Dose Admin Diagnostic Test (Pha) 1 strip ACHS 09/04/25 22:00 09/10/25 06:50 1 STRIP Insulin Human Regular ACHS SC 09/04/25 22:00 09/10/25 11:56 2 UNITS Dextrose 50 ml UD PRN IV 09/04/25 19:15 Sodium Chloride 10 ml Q8HR IV 09/04/25 22:00 09/10/25 06:49 10 ML Acetaminophen/ Hydrocodone Bitart 1 tab Q4HP PRN PO 09/04/25 19:15 09/06/25 00:59 1 TAB Ondansetron HCl 4 mg Q4HP PRN IV 09/04/25 19:15 Docusate Sodium 100 mg BIDPRN PRN PO 09/04/25 19:15 Acetaminophen 500 mg Q6HP PRN PO 09/04/25 19:15 09/10/25 10:30 500 MG Atorvastatin Calcium 10 mg HS PO 09/04/25 22:00 09/09/25 21:26 10 MG Folic Acid 1 mg DAILY PO 09/05/25 10:00 09/10/25 09:57 1 MG Nitroglycerin 0.4 mg Q5MINP PRN SL 09/04/25 20:45 Morphine Sulfate 2 mg Q30M PRN IV 09/04/25 20:45 Primidone 50 mg HS PO 09/10/25 10:30 Clonidine HCl 0.2 mg Q4HP PRN PO 09/10/25 12:30 Metoprolol Tartrate 50 mg BID PO 09/10/25 12:30 Laboratory Results Laboratory Tests 09/05/25 05:32 Urinalysis Test 09/04/25 17:09 Urine Color Yellow (Yellow) Urine Clarity Turbid (Clear) H Urine pH 5.5 (5.0-9.0) Urine Specific [place] 1.017 (1.001-1.035) Urine Protein 1+ (Negative) H Urine Ketones Trace (Negative) Urine Blood Negative /uL (Negative) Urine Nitrite Negative (Negative) Urine Bilirubin Negative (Negative) Urine Urobilinogen Normal mg/dL (Negative) Urine Leukocyte Esterase Negative /uL (Negative) Urine RBC <1 /hpf (0 - 4) Urine Microscopic WBC 2 /HPF (0-5) Urine Squamous Epithelial Cells Mod /hpf (<5) Urine Bacteria Few /hpf (None Seen) H Urine Mucus Few (None Seen) Urine Glucose Normal mg/dL (Normal) Microbiology Microbiology Date/Time Source Procedure Growth Status 09/06/25 20:10 Stool Stool Culture - Final Complete 09/06/25 20:10 Stool Shiga Toxin I & II - Final Complete Labs and/or images reviewed: Labs reviewed by me, Image(s) reviewed by me Assessment/Plan Assessment/Plan Generalized weakness Mechanical fall History of colon cancer Abnormal CT findings of cyst in pancreatic tail Plan: Discussed with Dr. Post Discussed lab results with patient Outpatient GI follow-up recommended We will sign off from GI point of view Plan discussed with: Patient, Daughter Date of Service: Sep 10, 2025 Billing Provider: DIONTE BRAY Common Visit Codes: [id number] INP/OBS CARE(HIGH) DIONTE BRAY Sep 10, 2025 13:23
[2025-09-10 18:23] LABS: COVID19 ANTIGEN SOFIA FIA NEGATIVE (NEGATIVE)
[2025-09-11 01:00] VITALS: BP 125/51; PULSE 94; RESP 18; TEMP 97.8; O2SAT 95
[2025-09-11 05:00] VITALS: BP 156/78; PULSE 61; RESP 18; TEMP 97.5; O2SAT 98
[2025-09-11 08:00] VITALS: PULSE 64
[2025-09-11 09:00] VITALS: BP 160/69; PULSE 63; RESP 16; TEMP 96.4; O2SAT 95
--- NOTE | 2025-09-11 10:16 | DVHPN2 ---
Reviewed: Care Plan, H&P, Labs, Medications, Previous Orders, Radiology Changes from previous H/P or p: No Changes Objective Vitals Vital Signs Date Time Temp Pulse Resp B/P (MAP) Pulse Ox O2 Delivery O2 Flow Rate FiO2 09/11/25 07:56 Room Air* 0 21 09/11/25 05:00 97.5 61 18 156/78 (104) 98 97.5 Intake/Output Intake and Output 09/11/25 07:00 Intake Total 980 ml Output Total 800 ml Balance 180 ml Intake Oral 980 ml Output Urine Total 800 ml # Voids 4 Medications Current Medications Medications Dose Ordered Sig/Josué Route Start Time Stop Time Status Last Admin Dose Admin Diagnostic Test (Pha) 1 strip ACHS 09/04/25 22:00 09/11/25 06:01 1 STRIP Insulin Human Regular ACHS SC 09/04/25 22:00 09/10/25 22:32 2 UNITS Dextrose 50 ml UD PRN IV 09/04/25 19:15 Sodium Chloride 10 ml Q8HR IV 09/04/25 22:00 09/11/25 05:07 10 ML Acetaminophen/ Hydrocodone Bitart 1 tab Q4HP PRN PO 09/04/25 19:15 09/06/25 00:59 1 TAB Ondansetron HCl 4 mg Q4HP PRN IV 09/04/25 19:15 Docusate Sodium 100 mg BIDPRN PRN PO 09/04/25 19:15 Acetaminophen 500 mg Q6HP PRN PO 09/04/25 19:15 09/11/25 04:24 500 MG Atorvastatin Calcium 10 mg HS PO 09/04/25 22:00 09/10/25 22:27 10 MG Folic Acid 1 mg DAILY PO 09/05/25 10:00 09/10/25 09:57 1 MG Nitroglycerin 0.4 mg Q5MINP PRN SL 09/04/25 20:45 Morphine Sulfate 2 mg Q30M PRN IV 09/04/25 20:45 Primidone 50 mg HS PO 09/10/25 10:30 09/10/25 22:27 50 MG Clonidine HCl 0.2 mg Q4HP PRN PO 09/10/25 12:30 09/10/25 16:42 0.2 MG Metoprolol Tartrate 50 mg BID PO 09/10/25 12:30 09/10/25 22:28 50 MG Laboratory Results Laboratory Tests 09/05/25 05:32 Urinalysis Test 09/04/25 17:09 Urine Color Yellow (Yellow) Urine Clarity Turbid (Clear) H Urine pH 5.5 (5.0-9.0) Urine Specific [place] 1.017 (1.001-1.035) Urine Protein 1+ (Negative) H Urine Ketones Trace (Negative) Urine Blood Negative /uL (Negative) Urine Nitrite Negative (Negative) Urine Bilirubin Negative (Negative) Urine Urobilinogen Normal mg/dL (Negative) Urine Leukocyte Esterase Negative /uL (Negative) Urine RBC <1 /hpf (0 - 4) Urine Microscopic WBC 2 /HPF (0-5) Urine Squamous Epithelial Cells Mod /hpf (<5) Urine Bacteria Few /hpf (None Seen) H Urine Mucus Few (None Seen) Urine Glucose Normal mg/dL (Normal) Microbiology Microbiology Date/Time Source Procedure Growth Status 09/06/25 20:10 Stool Stool Culture - Final Complete 09/06/25 20:10 Stool Shiga Toxin I & II - Final Complete Labs and/or images reviewed: Labs reviewed by me, Image(s) reviewed by me Assessment/Plan Assessment/Plan Acute Generalized weakness Mechanical fall Acute Dehydration: LR 150 per hour Hypertension Diabetes 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 Colleen Post placed; CA 19 -9 , CEA normal, Dr. Colleen Post advised outpatient EUS at higher level of care Hypercholesterolemia Chronic anemia Bilateral knee pain bilateral knee x-rays neg History of colon cancer status post colectomy with lymphadenectomy March 2025 [place], no colostomy Acute abdominal pain CT abdomen pelvis without contrast negative Acute rhabdomyolysis with CPK 259: Improved to [address] head shows calcifications in the josue confirmed by MRI brain Lipase normal D-dimer 2.5 DVT ruled out PE ruled out Possible pontine hemorrhage by CT: Neurology Dr. Paz placed on Mysoline 25 mg p.o. HS Candi test negative Rapid flu test negative Patients Daughter Shaneka who lives in [facility] [place], bedside Per daughter's request patient is discharged to [place] [facility] today for physical therapy medication management Plan discussed with: Patient My Orders Orders - ROBY BRAY MD Procedure Category Date Status Time Clonidine Hcl Tablet PHA 09/10/25 In Process (Catapres Tablet) 12:30 Metoprolol Tartrate PHA 09/10/25 In Process Tablet (Lopressor Ta 12:30 * Correspondence Transcriber CONS 09/10/25 Transmitted Consult Discharge DISCHARGE 09/10/25 Transmitted 12:36 Dme: [employer] DME 09/10/25 Transmitted 16:19 Date of Service: Sep 11, 2025 Billing Provider: ROBY BRAY MD Common Visit Codes: [id number] INP/OBS CARE(HIGH) ROBY BRAY MD Sep 11, 2025 10:16
[2025-09-11 14:37] VITALS: BP 148/78; PULSE 79; TEMP 35.8
[2025-09-11 17:00] VITALS: BP 180/77; PULSE 61; RESP 16; TEMP 96.8; O2SAT 96
== END 2025-09-11 19:10 | DRG 564 ==
LOC: ER 15:20 → EDSEX 15:20 → EDBD 15:20 → OVERFLOW 20:40 → TELE-WESTW 22:42
PROVIDERS: ADMIT Family Medicine; ATTEND Family Medicine
DX: T79.6XXA Traumatic ischemia of muscle, initial encounter (principal); I61.3 Nontraumatic intracerebral hemorrhage in brain stem; K86.2 Cyst of pancreas; D64.9 Anemia, unspecified; E11.22 Type 2 diabetes mellitus with diabetic chronic kidney disease; E78.00 Pure hypercholesterolemia, unspecified; E86.0 Dehydration; N18.30 Chronic kidney disease, stage 3 unspecified; I12.9 Hypertensive chronic kidney disease with stage 1 through stage 4 chronic kidney disease, or unspecified chronic kidney disease; F17.200 Nicotine dependence, unspecified, uncomplicated; G25.0 Essential tremor; Z20.822 Contact with and (suspected) exposure to COVID-19; Z90.710 Acquired absence of both cervix and uterus; Z90.49 Acquired absence of other specified parts of digestive tract; Z80.3 Family history of malignant neoplasm of breast; Z82.3 Family history of stroke; Z83.3 Family history of diabetes mellitus; Z85.3 Personal history of malignant neoplasm of breast; Z85.038 Personal history of other malignant neoplasm of large intestine; Z86.73 Personal history of transient ischemic attack (TIA), and cerebral infarction without residual deficits; Y92.009 Unspecified place in unspecified non-institutional (private) residence as the place of occurrence of the external cause; W18.39XA Other fall on same level, initial encounter; Y93.89 Activity, other specified; Y92.098 Other place in other non-institutional residence as the place of occurrence of the external cause
CPT/HCPCS: 36415; 70450; 70551; 71045; 72195; 73590; 74176; 74181; 78582; 80053; 81001; 82378; 82550; 82962; 83605; 83690; 84484; 85025; 85048; 85379; 86301; 86803; 86850; 86900; 86901; 87045; 87177; 87340; 87426; 87427; 87493; 87804; 93970; 97110; 97116; 97162; 97530; G0378; J1815